=== PATIENT | male | born 1930 | race Caucasian/White ===

== ENCOUNTER → 2019-02-17 | Outpatient (CLI) | payer MEDICARE ==
--- NOTE | 2019-02-17 22:37 | BD ---
EXAMINATION TYPE: Axial Bone Density DATE OF EXAM: 02/17/2019 COMPARISON: NONE CLINICAL HISTORY: Height: 5 FT 7 1/2 IN Weight: 157 FRAX RISK QUESTIONS: Secondary Osteoporosis: RISK FACTORS HISTORY OF: Surgery to Spine/Hip(right/left)/Wrist (right/left): TSPINE T 12 CEMENTED When: 6- 8 YEARS AGO Active: YES Lost more than 2 inches in height since high school: YES MEDICATIONS: Additional Medications: CELEBREX, OMEPRAZOLE, PROSTATE MEDS, Additional History: EXAM MEASUREMENTS: Bone mineral densitometry was performed using the Planbox System. Bone mineral density as measured about the Lumbar spine is: ----- L1-L4(G/cm2): 1.398 T Score Values are as follows: ----- L2: 2.1 ----- L3: 2.2 ----- L4: 1.8 ----- L1-L4: 1.8 BASELINE Bone mineral density about the R hip (g/cm2): 0.725 Bone mineral density about the L hip (g/cm2): 0.711 T Score values are as follows: -----R Neck: -2.3 -----L Neck: -2.4 -----R Total: -2.4 -----L Total: -2.5 BASELINE IMPRESSION: Osteopenia (T Score between -2.5 and -1) identified in both hips. There is slightly increased risk of fracture and the patient may be considered for treatment. Re-Screen 2-5 years. NOTE: T-SCORE=SD OF THE YOUNG ADULT MEAN.
--- NOTE | 2019-02-18 08:51 | XR ---
EXAMINATION TYPE: XR lumbar spine 2 or 3V DATE OF EXAM: 02/17/2019 COMPARISON: None HISTORY: [age] low back pain for years TECHNIQUE: Three-view lumbar spine FINDINGS: There is a compression deformity with vertebroplasty at T12. There 5 lumbar-type vertebral bodies. The pedicles are intact. There is diffuse loss of disc height throughout the lumbar spine. Sp ondylosis is present. There is a scoliosis present with the convexity to the left centered at L3. Tavon e anterolisthesis of L4 on L5 is present. Some retrolisthesis of L2 on L3 is present. IMPRESSION: 1. Advanced degenerative disc changes with some anterolisthesis of L4 on L5 and retrolisthesis of L2 posteriorly at L3. Scoliosis is present
--- NOTE | 2019-02-18 08:53 | XR ---
EXAMINATION TYPE: XR thoracic spine complete DATE OF EXAM: 02/17/2019 COMPARISON: None HISTORY: [age] low back pain for years TECHNIQUE: Three-view thoracic spine FINDINGS: Mild scoliosis is present. There is a compression deformity with vertebroplasty at T12. The re are 12 thoracic type vertebral bodies. The pedicles are intact T1-T11. Some mild degenerative disc changes within the lower thoracic spine. IMPRESSION: 1. Old compression deformity T12. 2. Degenerative disc changes lower thoracic spine
== END | disposition home or self-care (01) ==
LOC: RADBDWWP 16:33
PROVIDERS: ATTEND Internal Medicine
DX: M51.36 Other intervertebral disc degeneration, lumbar region (principal); M43.16 Spondylolisthesis, lumbar region; M41.86 Other forms of scoliosis, lumbar region; M51.34 Other intervertebral disc degeneration, thoracic region; M43.8X4 Other specified deforming dorsopathies, thoracic region; M85.851 Other specified disorders of bone density and structure, right thigh; M85.852 Other specified disorders of bone density and structure, left thigh
CPT/HCPCS: 72072; 72100; 77080

== ENCOUNTER → 2019-05-01 | Outpatient (CLI) | payer MEDICARE | END | disposition home or self-care (01) | LOC: LABPAT 12:29 | PROVIDERS: ATTEND Orthopaedic Surgery | DX: Z01.812 Encounter for preprocedural laboratory examination (principal) | CPT/HCPCS: 87070 ==

== ENCOUNTER 2019-05-19 09:33 | Day surgery (SDC) | payer MEDICARE ==
[2019-05-15 15:21] VITALS: BMI 24.3
[~2019-05-19 09:33] MED LIST: ACETAMINOPHEN TAB 500 MG TAB PO ONE; GABAPENTIN 300 MG CAP PO ONE; HYDROmorphone 0.5 MG/0.5 ML SYRINGE IVP PRN; LIDOCAINE 1% 20 ML VIAL (10MG/ML) FOR IV START INTRADERMA PRN; MELOXICAM 7.5 MG TAB PO ONE; ONDANSETRON 4 MG/2 ML VIAL IVP ONE; TRANEXAMIC ACID 1,000 MG in SODIUM CHLORIDE 0.9% 100 ML IVPB ONE; VANCOMYCIN 1,000 MG in SODIUM CHLORIDE 0.9% 250 ML IVPB ONE
[2019-05-19] MEDS ORDERED: DEXAMETHASONE SOD PHOSPHATE 10 MG/ML 1 ML VIAL IV ONE (10:18)
[2019-05-19] MEDS: LACTATED RINGERS 1,000 ML IV SCH (10:24)
[2019-05-19] MEDS ORDERED: MIDAZOLAM 2 MG/2 ML VIAL IVP ONE (10:34)
[2019-05-19] MEDS ORDERED: fentaNYL (PF) 50 MCG/ML 2 ML AMP IVP ONE (10:35)
[2019-05-19] MEDS ORDERED: ROPIVACAINE 0.2%-NS ON-Q PUMP 1,090 MG, EMPTY PAIN BALL 1 EACH MISCELLANE PRN (11:04)
--- NOTE | 2019-05-19 11:06 | P.ANPRN ---
Procedure Note - Anesthesia - Nerve Block Performed Right Adductor Canal Infusion Time Out Performed: Yes Date of Procedure: 05/19/19 Procedure Start Time: 10:34 Procedure Stop Time: 10:45 Location of Patient: PreOp Indication: Acute Post-Operative Pain, Requested by Surgeon Specifically requested for management of pain by : Hudson Cabrera Sedation Type: Sedate with meaningful contact maintained Preparation: Sterile Prep Position: Supine Catheter Depth at Skin (cm): 6 Catheter: Indwelling Needle Types: Pajunk Needle Gauge: 18 Ultrasound used to visualize needle placement: Yes Ultrasound used to observe medication spread: Yes Injectate: 0.5% Ropivacaine (see comment for volume) (20 cc) Blood Aspirated: No Pain Paresthesia on Injection Noted: No Resistance on Injection: Normal Image Stored and Saved: Yes Events: Uneventful and Well Tolerated
[2019-05-19] MEDS ORDERED: HYDROmorphone (PF) 1 MG/ML ONE (11:41)
[2019-05-19] MEDS ORDERED: VECURONIUM 10 MG VIAL IV ONE (11:41)
[2019-05-19] MEDS ORDERED: MIDAZOLAM 2 MG/2 ML VIAL ONE (11:41)
[2019-05-19] MEDS ORDERED: TRANEXAMIC ACID 1,000 MG/10 ML VIAL ONE (11:41)
[2019-05-19] MEDS ORDERED: SODIUM CHLORIDE 0.9% 100 ML BAG ONE (11:41)
[2019-05-19] MEDS ORDERED: NEOSTIGMINE 1 MG/ML 10 ML VIAL ONE (11:41)
[2019-05-19] MEDS ORDERED: SUCCINYLCHOLINE CHLORIDE 100 MG/5 ML SYR IV ONE (11:41)
[2019-05-19] MEDS ORDERED: PROPOFOL 10 MG/ML 20 ML VIAL IV ONE (11:41)
[2019-05-19] MEDS ORDERED: fentaNYL (PF) 50 MCG/ML 2 ML AMP ONE (11:41)
[2019-05-19] MEDS ORDERED: LIDOCAINE 1% INJ 10MG/ML (20 ML MDV) ONE (11:41)
[2019-05-19] MEDS ORDERED: GLYCOPYRROLATE 0.2 MG/ML 2 ML VIAL ONE (11:41)
[2019-05-19] MEDS: ROPIVACAINE 246.25 MG, EPINEPHrine 0.5 MG, KETOROLAC 30 MG, cloNIDine HCL/PF 80 MCG, WA... MISCELLANE ONE ×10 (12:19→13:15)
[2019-05-19] MEDS ORDERED: LACTATED RINGERS 1,000 ML IV ONE (13:16)
--- NOTE | 2019-05-19 13:33 | P.OP ---
Date of Procedure: 05/19/19 Preoperative Diagnosis: Severe osteoarthritis right knee Postoperative Diagnosis: Severe osteoarthritis right knee Procedure(s) Performed: Right total knee arthroplasty with Visionaire patient specific guides Implants: Colon and Nephew Cruciate Retaining Journey II CR Oxinium Femoral Component size 6, right Colon & Nephew Journey Nonporous Tibial Baseplate size 7, right Colon & Nephew Journey II CR, XLPE Articular Insert, 10 mm, size 7-8 Colon & Nephew Brissa II Resurfacing Patellar Component, Oval, 32 mm All components were cemented using Palacose R bone cement. The articulation is Oxinium on polyethylene. Visionaire patient specific guides The articulation is Oxinium on polyethylene. Anesthesia: SHANEL Surgeon: Hudson Cabrera Needle Bar Molder #1: Ruth Davis Estimated Blood Loss (ml): 30 Pathology: other (Bone and cartilage) Condition: stable Disposition: PACU Indications for Procedure: After failure of conservative treatment we discussed the surgical and nonsurgical treatment options at length. Patient wishes to proceed with a total knee arthroplasty. Complications specific to this procedure were discussed at length, including but not limited to infection, bleeding, stiffness, and nerve injury. Patient is aware of all these complications and informed consent was obtained Operative Findings: The operative findings are consistent with severe osteoarthritis of the right knee Description of Procedure: Patient was seen in the preoperative area consent was reviewed and operative site was marked with a skin marker. An adductor canal pain catheter was placed by anesthesia in the preoperative area. Patient was then brought to the operating room and given preoperative antibiotics intravenously. A spinal anesthetic was attempted by the anesthesia department, but was unsuccessful. A general anesthetic was administered. A tourniquet was placed on the upper thigh and the lower extremity was prepped and draped in usual sterile fashion. A gram of transexamic acid was given. A universal timeout was then performed which confirmed the patient's name, surgical site, ALLERGIES, and consent. The lower extremity was then exsanguinated and tourniquet was inflated to 250 mmHg. A standard and anterior midline approach to the knee was performed. The skin and subcutaneous tissue was dissected down to the patellar tendon. A medial parapatellar arthrotomy was then performed. The knee was then extended, the patellar was everted, and the knee was again flexed. Anterior horns of both menisci were excised, and a release was performed to the posterior medial aspect of the knee. On gross visual inspection, there was complete loss of articular cartilage in the medial and patellofemoral joint spaces. There was also significant cartilage damage in the lateral compartment. There were multiple periarticular osteophytes. The patient specific guide was placed on the distal femur, and pinned in place. Using the patient specific guide, the distal femoral cut was performed. The cutting block was then removed and the cut was checked for flatness. The appropriate 5-in-1 cutting block was then pinned in place through the holes that were drilled through the patient specific guide. The anterior condyles were cut without notching. The posterior and chamfer cuts were performed while protecting the collateral ligaments. The cutting block was then removed. Attention was then directed to the tibia. The remaining ACL was removed with a Ronguer, and the tibia was then gently subluxed forward with a large bent knee retractor. Any remaining menisci was excised. The posterior lateral corner was cauterized in order to cauterize the lateral geniculate artery. The patient specific guide for the tibia was then placed and was held in place with pins. Pinholes were then placed for rotation of the tibial component as well. Proximal tibia was then cut and sized. Next trials were then placed with the appropriate-sized insert. The knee was able to fully extend and flex to 130 and was stable throughout all range of motion. The knee was then extended, patella everted. Patella was then measured, and then using an osteotomy guide, the patella was cut at the appropriate level. The patella was then measured and drilled and the patella trial was then placed. The knee was then taken through range of motion with the patella trial and the patella tracked normally. The knee was then extended patella trial was then removed and the patella was everted. Knee was then flexed and lug holes were drilled through the femoral trial and the femoral trial was then removed. The tibial was then exposed, and the tibial broach guide was then pinned in place after it was set for the appropriate rotation to allow for the most coverage without overhang. The tibia was then reamed and broached. The cut surfaces of bone were then irrigated with pulsatile lavage. The posterior structures were injected with the ropivacaine solution. The knee was also irrigated with Irrisept solution. The components were then opened, the cement was mixed, and the components were then cemented in place. The cement was allowed to harden with the knee in full extension. While the cement was hardening, the remaining soft tissues were then injected with a ropivacaine solution, which consisted of 246.25 mg of ropivacaine, 0.5 mg of epinephrine, 30 mg of Toradol, 80 g of clonidine, and 48.45 mL of sterile water, for a total of 100 mL of fluid injected. After the cemented hardened. The tourniquet was released, and hemostasis was obtained. A second gram of transexamic acid was given. The knee was again irrigated. The knee was again taken through range of motion and found to be stable throughout all range of motion of 0-130, and the patella tracked normally. The fascia was then closed with #2 strata fix suture. The subcutaneous tissue was closed with 3-0 Vicryl and 3-0 strata fix. Dermabond glue was used for the skin and placed with the knee in flexion. The patient was placed in a sterile silver dressing. Patient was then transferred to recovery room in stable condition. The junior assistant manager Ruth Davis NP was required due the complexity surgery and the need for a skilled promotions assistant sales marketing. She assisted in positioning, draping, retraction, and closure of the wound.
[2019-05-19] MEDS ORDERED: NA PHOS,M-B/NA PHOS,DI-BA 133 ML ENEMA RECTAL PRN (13:52)
[2019-05-19] MEDS ORDERED: BISACODYL 10 MG SUPP RECTAL PRN (13:52)
[2019-05-19] MEDS ORDERED: NALOXONE 0.4 MG/ML 1 ML VIAL IV PRN (13:52)
[2019-05-19] MEDS ORDERED: HYDROmorphone 0.5 MG/0.5 ML SYRINGE IVP PRN ×3 (13:52)
[2019-05-19] MEDS ORDERED: MAGNESIUM HYDROXIDE 2,400 MG/10 ML CUP PO PRN (13:52)
[2019-05-19] MEDS ORDERED: TEMAZEPAM 15 MG CAP PO PRN (13:52)
[2019-05-19] MEDS ORDERED: hydrOXYzine PAMOATE 25 MG CAP PO PRN (13:52)
[2019-05-19] MEDS ORDERED: ONDANSETRON 4 MG/2 ML VIAL IVP PRN (13:52)
[2019-05-19] MEDS ORDERED: HYDROcodone/APAP 7.5-325MG 1 EACH TAB PO PRN ×2 (13:55)
[2019-05-19] MEDS ORDERED: SODIUM CHLORIDE 0.9% 1,000 ML IV SCH (14:00)
--- NOTE | 2019-05-19 14:24 | XR ---
EXAMINATION TYPE: XR knee limited RT DATE OF EXAM: 05/19/2019 COMPARISON: NONE HISTORY: 88-year-old male status post total knee articular plasty, assess surgical alignment TECHNIQUE: 2 views FINDINGS: Images show placement of right total knee arthroplasty. Both distal femoral and proximal tibial compo nents of the prosthesis appear well seated without periprosthetic fracture. Alignment grossly anatomi c. Anterior soft tissue swelling with soft tissue air as well as intra-articular air related to recen t operation. Posterior loose body measures 1.6 cm. IMPRESSION: Uncomplicated postoperative appearance right total knee arthroplasty. A residual 1.6 cm posterior loo se body noted.
--- NOTE | 2019-05-19 15:12 | P.CONS ---
History of Present Illness - Reason for Consult Consult date: 05/19/19 Medical management Requesting physician: Hudson Cabrera - Chief Complaint Right total knee arthroplasty - History of Present Illness This is a 88-year-old male with a known history of osteoarthritis of the right knee, GERD and enlarged prostate. Patient underwent a right total knee arthroplasty with Dr. Cabrera today for severe osteoarthritis of the right knee. He tolerated surgery well with no complications. Estimated blood loss was 30 mL. We have been consulted for medical management. At this time patient is lying in bed comfortably. He reports that his pain is controlled. Vitals are stable. He denies any chest pain or shortness of breath. He denies any nausea or vomiting. Bowel movements moving vigorously prior to admission. And he denies any difficulty or burning with urination. Patient denies any cardiac history. Review of Systems Please refer to HPI otherwise unremarkable Past Medical History Past Medical History: GERD/Reflux, Hearing Disorder / Deafness, Osteoarthritis (OA), Prostate Disorder Additional Past Medical History / Comment(s): Hearing aids. BPH. Chronic back pain, spine "collapsed," wears support occ. History of Any Multi-Drug Resistant Organisms: None Reported Past Surgical History: Back Surgery, Orthopedic Surgery Additional Past Surgical History / Comment(s): Rt KNEE ARTHROSCOPY, Deviated Septum SX, Kyphoplasty T12, CATARACTS Past Anesthesia/Blood Transfusion Reactions: No Reported Reaction Smoking Status: Never smoker - Past Family History Mother Family Medical History: No Reported History Father Family Medical History: Myocardial Infarction (DC) Additional Family Medical History / Comment(s): AT AGE 49 Medications and Allergies Home Medications Medication Instructions Recorded Confirmed Type Celecoxib [CeleBREX] 200 mg PO DAILY 10/07/14 05/15/19 History Omeprazole [PriLOSEC] 20 mg PO DAILY 10/07/14 05/15/19 History Terazosin [Hytrin] 5 mg PO HS 10/07/14 05/15/19 History Multivitamins, Thera [Theragran] 1 each PO DAILY 12/06/14 05/15/19 History Cholecalciferol [Vitamin D3 (25 5,000 unit PO DAILY 05/15/19 05/15/19 History Mcg = 1000 Iu)] HYDROcodone/APAP 7.5-325MG [[place] 1 tab PO DIRECTED PRN 05/15/19 05/15/19 History 7.5-325] Aspirin 325 mg PO BID #60 tab 05/19/19 Rx Sennosides-Docusate Sodium 2 tab PO DAILY #30 tablet 05/19/19 Rx [Senokot-S] Allergies Allergy/AdvReac Type Severity Reaction Status Date / Time No Known Allergies Allergy Verified 05/15/19 14:43 Physical Exam Vitals: Vital Signs Temp Pulse Resp BP Pulse Ox 05/19/19 14:30 57 L 14 117/65 98 05/19/19 14:15 55 L 16 118/63 93 L 05/19/19 14:00 55 L 14 132/63 05/19/19 13:46 97.8 F 66 14 113/62 98 05/19/19 10:48 64 16 135/68 99 05/19/19 10:02 97.2 F L 77 17 149/86 97 Intake and Output 05/19/19 05/19/19 05/19/19 06:59 14:59 22:59 Intake Total 1550 Output Total 30 Balance 1520 Intake: IV 1550 Output: Estimated Blood Loss 30 Head normocephalic Neck supple Lungs clear to auscultation bilaterally no wheezing or crackles Heart regular rate and rhythm S1-S2, no rub or gallop Abdomen is soft nontender nondistended positive bowel sounds no hepatosplenomegaly Extremities no edema. Right leg is Damian wrapped. Pain pump is present Neuro alert and orientated to 3 Assessment and Plan Assessment: 1. Severe osteoarthritis of the right knee: Status post right total knee arthroplasty with Dr. Cabrera. Continue aspirin 325 mg twice a day and SCDs for DVT prophylaxis. Pain management per orthopedics. 2. History of GERD: Resume patient's omeprazole 20 mg daily 3. History of BPH: Resume patient's Hytrin Medications have been reviewed and reconciled Check CBC and CMP in a.m. Thank you for this consultation. We will continue to follow along during patient's hospitalization. Time with Patient: Greater than 30 (Greater than 50% of the total time spent in counseling and coordination of care.I performed an examination of the patient and discussed their management with the physician Tile Power Shear Operator. I have reviewed the Physician Tile Power Shear Operator's notes and agree with the documented findings and plan of care)
[2019-05-19] MEDS ORDERED: SENNOSIDES-DOCUSATE SODIUM 1 EACH TAB PO SCH (21:00)
[2019-05-19] MEDS ORDERED: DOXAZOSIN 4 MG TAB PO SCH (21:00)
[2019-05-19] MEDS: ASPIRIN 325 MG TAB PO SCH (21:40)
[2019-05-19] MEDS ORDERED: VANCOMYCIN 1,000 MG in SODIUM CHLORIDE 0.9% 250 ML IVPB ONE (23:00)
[2019-05-20 07:21] VITALS: BP 108/63; PULSE 74; RESP 18; TEMP 97.8
[2019-05-20] MEDS ORDERED: PANTOPRAZOLE 40 MG TABLET PO SCH (07:30)
[2019-05-20 08:15] LABS: Basophils % (A) 0 %; Eosinophils % (A) 0 %; HCT 40.8 % (39.0-53.0); HGB 13.3 gm/dL (13.0-17.5); Lymphocytes % (A) 8 %; MCH 34.8 pg (25.0-35.0); MCHC 32.6 g/dL (31.0-37.0); MCV 106.8 fL (80.0-100.0); Macrocytosis Slight; Monocytes % (A) 8 %; Neutrophils % (A) 84 %; Platelet Count 196 k/uL (150-450); RBC 3.82 m/uL (4.30-5.90); RDW 11.9 % (11.5-15.5); WBC 13.2 k/uL (3.8-10.6)
--- NOTE | 2019-05-20 08:24 | P.DS ---
Providers Expected date of discharge: 05/20/19 Attending physician: Hudson Cabrera Consults: 05/19/19 13:52 Consult Physician Routine Consulting Provider: Delia Mcneil Consult Reason/Comments: medical management Do you want consulting provider notified?: Yes Primary care physician: Delia Mcneil - Discharge Diagnosis(es) (1) Osteoarthritis of right knee Current Visit: Yes Status: Acute (2) Status post total right knee replacement Current Visit: Yes Status: Acute Hospital Course: This is a pleasant 88-year-old male last seen in our office with complaints of right knee pain. Patient has known history of degenerative arthritis of the right knee and presented to discuss options. After discussion and consideration, patient elected to proceed with a total knee arthroplasty of the right knee. The patient was seen preoperatively and medically cleared for surgery by his primary care physician. The patient was admitted to [facility] and underwent right total knee arthroplasty on 05/19/[address] Hudson Cabrera. The procedure was performed without complications or sequelae. The patient has done well postoperatively. The patient was seen and evaluated at bedside today and denies any new complaints. Pain is reasonably controlled. The patient states he is having a problem with urinary retention. Dressing is clean dry and intact. Incision looks fine with no erythema or active drainage. Calf is soft and nontender. The patient has full foot and ankle motion without difficulty. Patient's right lower extremity is neurovascular intact. Patient is orthopedically stable for discharge to home today when he is able to urinate without retaining. Pertinent Studies: Laboratory Tests 05/20/19 07:04 WBC 13.2 H RBC 3.82 L Hgb 13.3 Hct 40.8 MCV 106.8 H Neutrophils # 11.0 H Patient Condition at Discharge: Stable Plan - Discharge Summary Discharge Rx Participant: Yes New Discharge Prescriptions: New Aspirin 325 mg PO BID #60 tab Sennosides-Docusate Sodium [Senokot-S] 2 tab PO DAILY #30 tablet HYDROcodone/APAP 5-325MG [[place] 5] 1 - 2 each PO Q4-6H PRN #56 tab PRN Reason: Pain No Action Terazosin [Hytrin] 5 mg PO HS Omeprazole [PriLOSEC] 20 mg PO DAILY Celecoxib [CeleBREX] 200 mg PO DAILY Multivitamins, Thera [Theragran] 1 each PO DAILY Cholecalciferol [Vitamin D3 (25 Mcg = 1000 Iu)] 5,000 unit PO DAILY HYDROcodone/APAP 7.5-325MG [[place] 7.5-325] 1 tab PO DIRECTED PRN PRN Reason: Severe Pain Discharge Medication List Celecoxib [CeleBREX] 200 mg PO DAILY 10/07/14 [History] Omeprazole [PriLOSEC] 20 mg PO DAILY 10/07/14 [History] Terazosin [Hytrin] 5 mg PO HS 10/07/14 [History] Multivitamins, Thera [Theragran] 1 each PO DAILY 12/06/14 [History] Cholecalciferol [Vitamin D3 (25 Mcg = 1000 Iu)] 5,000 unit PO DAILY 05/15/19 [History] HYDROcodone/APAP 7.5-325MG [[place] 7.5-325] 1 tab PO DIRECTED PRN 05/15/19 [History] Aspirin 325 mg PO BID #60 tab 05/19/19 [Rx] Sennosides-Docusate Sodium [Senokot-S] 2 tab PO DAILY #30 tablet 05/19/19 [Rx] HYDROcodone/APAP 5-325MG [[place] 5] 1 - 2 each PO Q4-6H PRN #56 tab 05/20/19 [Rx] Follow up Appointment(s)/Referral(s): [facility], [NON-STAFF] - Hudson Cabrera DO [Doctor of Osteopathic Medicine] - 2 Weeks Ambulatory/Diagnostic Orders: Continuous Passive Motion (CPM) Machine [DME.AMB1] Time Frame: 3 Weeks, Location: None Selected Activity/Diet/Wound Care/Special Instructions: Weightbearing as tolerated with walker Keep dressing in place for 10 days unless saturated Aspirin 325 mg twice a day May shower over dressing CPM 5-6 hours daily Follow up with Dr. Hudson Cabrera in 2 weeks. Call [facility] with questions or concerns, Discharge Disposition: HOME WITH HOME HEALTH SERVICES
[2019-05-20 08:35] LABS: ALT 14 U/L (4-49); AST 26 U/L (17-59); African American GFR (CKD) >90 (>60 ml/min/1.73 sqM); Albumin 3.1 g/dL (3.5-5.0); Alkaline Phosphatase 54 U/L (38-126); Anion Gap 4 mmol/L; Blood Urea Nitrogen 18 mg/dL (9-20); Calcium 8.7 mg/dL (8.4-10.2); Carbon Dioxide 24 mmol/L (22-30); Chloride 109 mmol/L (98-107); Glucose 89 mg/dL (74-99); Non-African American GFR(CKD) 82 (>60 ml/min/1.73 sqM); Potassium 4.4 mmol/L (3.5-5.1); Sodium 137 mmol/L (137-145); Total Bilirubin 0.6 mg/dL (0.2-1.3); Total Protein 5.9 g/dL (6.3-8.2)
[2019-05-20] MEDS: LACTATED RINGERS 1,000 ML IV SCH (08:40)
[2019-05-20] MEDS: ASPIRIN 325 MG TAB PO SCH (08:42)
[2019-05-20] MEDS ORDERED: MULTIVITAMINS, THERA 1 EACH TAB PO SCH (09:00)
[2019-05-20] MEDS ORDERED: CHOLECALCIFEROL 1,000 UNIT TAB PO SCH (09:00)
[2019-05-20 12:34] LABS: Appearance,Urine Clear (Clear); Bilirubin,Urine Negative (Negative); Blood,Urine Negative (Negative); Color,Urine Yellow; Glucose,Urine (UA) Negative (Negative); Ketones,Urine Negative (Negative); Leukocyte Esterase,Urine Negative (Negative); Nitrite,Urine Negative (Negative); PH, Urine 5.5 (5.0-8.0); Protein,Urine Negative (Negative); Specific Gravity,Urine 1.014 (1.001-1.035); Urobilinogen,Urine <2.0 mg/dL (<2.0)
--- NOTE | 2019-05-20 13:34 | P.PN ---
Progress Note - Text 05/20 647am 88 yr old male s/p tkr by Dr Hudson johnson. pt has an on-q pump for post op pain control with the solution running at 8cc/hr and has a vas of 1. plan to continue infusion.
--- NOTE | 2019-05-20 13:52 | P.PN ---
Subjective Progress Note Date: 05/20/19 This is a 88-year-old male with a known history of osteoarthritis of the right knee, GERD and enlarged prostate. Patient underwent a right total knee arthroplasty with Dr. Cabrera today for severe osteoarthritis of the right knee. He tolerated surgery well with no complications. Estimated blood loss w as 30 mL. We have been consulted for medical management. At this time patient is lying in bed comfortably. He reports that his pain is controlled. Vitals are stable. He denies any chest pain or shortness of breath. He denies any nausea or vomiting. Bowel movements moving vigorously prior to admission. And he denies any difficulty or burning with urination. Patient denies any cardiac history. On 05/20/2019 patient is alert and oriented 3. Patient did initially have some trouble voiding. But was able to urinate. Urinary analysis negative for infection. Patient to be DC'd home per orthopedic services will be DC'd on aspirin for DVT prophylaxis. At this time patient denies chest pain or shortness of breath. Patient denies nausea vomiting or diarrhea. Patient denies any urinary burning or frequency. Patient has been up ambulating. Objective - Vital Signs Vital signs: Vital Signs Temp 97.8 F 05/20/19 07:00 Pulse 74 05/20/19 07:00 Resp 18 05/20/19 07:00 BP 108/63 05/20/19 07:00 Pulse Ox 97 05/20/19 07:00 Intake & Output 05/19/19 05/20/19 05/20/19 18:59 06:59 18:59 Intake Total 1550 400 Output Total 30 1300 125 Balance 1520 -900 -125 Weight 70.307 kg Intake: IV 1550 Intake, IV Titration 400 Amount Sodium Chloride 0.9% 1, 400 000 ml @ 50 mls/hr IV . Q20H [facility] Rx#:[id number] Output: Urine 1300 125 Straight 1300 Estimated Blood Loss 30 Other: Voiding Method Urinal - Exam Head normocephalic Neck supple Lungs clear to auscultation bilaterally no wheezing or crackles Heart regular rate and rhythm S1-S2, no rub or gallop Abdomen is soft nontender nondistended positive bowel sounds no hepatosplenomegaly Extremities no edema. Right knee dressing is clean dry and intact Neuro alert and orientated to 3 - Labs CBC & Chem 7: 05/20/19 07:04 05/20/19 07:04 Labs: Abnormal Lab Results - Last 24 Hours (Table) 05/20/19 05/20/19 Range/Units 07:04 07:04 WBC 13.2 H (3.8-10.6) k/uL RBC 3.82 L (4.30-5.90) m/uL MCV 106.8 H (80.0-100.0) fL Neutrophils # 11.0 H (1.3-7.7) k/uL Chloride 109 H (98-107) mmol/L Total Protein 5.9 L (6.3-8.2) g/dL Albumin 3.1 L (3.5-5.0) g/dL Assessment and Plan Assessment: 1. Severe osteoarthritis of the right knee: Status post right total knee arthroplasty with Dr. Cabrera. Continue aspirin 325 mg twice a day and SCDs for DVT prophylaxis. Pain management per orthopedics. Patient is currently postop day 1. Patient will be DC'd home per orthopedic services. Patient will be DC'd on aspirin 325mg 2. History of GERD: Resume patient's omeprazole 20 mg daily 3. History of BPH: Resume patient's Hytrin. Patient was able to void post procedure 4. Leukocytosis. wbc slightly elevated at 13.2. UA negative patient denies any acute symptoms Patient to be DC'd home per orthopedic services I performed an examination of the patient and discussed their management with the Nurse Practitioner. I have reviewed the Nurse Practitioner's notes and agree with the documented findings and plan of care
[2019-05-20] MEDS ORDERED: TAMSULOSIN 0.4 MG CAP.ER.24H PO SCH (18:30)
== END 2019-05-20 14:18 | disposition home health service (06) ==
LOC: OR 09:33 → 4SSUR 13:46 → OR 05-20 14:18
PROVIDERS: ATTEND Orthopaedic Surgery
DX: M17.11 Unilateral primary osteoarthritis, right knee (principal); K21.9 Gastro-esophageal reflux disease without esophagitis; N40.0 Benign prostatic hyperplasia without lower urinary tract symptoms; D72.829 Elevated white blood cell count, unspecified; H91.90 Unspecified hearing loss, unspecified ear; M54.9 Dorsalgia, unspecified; G89.29 Other chronic pain; Z79.899 Other long term (current) drug therapy; Z97.4 Presence of external hearing-aid; Z98.890 Other specified postprocedural states; Z98.49 Cataract extraction status, unspecified eye; Z97.3 Presence of spectacles and contact lenses; Z82.49 Family history of ischemic heart disease and other diseases of the circulatory system
CPT/HCPCS: 97161; 64448; 76942; 80053; 85025; 81003; 88300; 73560; 27447; C1713; C1776; J2250; J0171; J3370; J1100; J2710; J2405; J2001; J3010; J1885; J1170 ×2; J2795 ×2; J0330; J2704; J0735

== ENCOUNTER 2019-05-21 10:38 | Inpatient (IN) | payer MEDICARE ==
[2019-05-21] MEDS ORDERED: SODIUM CHLORIDE 0.9% 1,000 ML IV STA (10:43)
--- NOTE | 2019-05-21 10:54 | ED ---
Dizziness HPI - General Chief Complaint: Syncope Stated Complaint: Fall Time Seen by Provider: 05/21/19 10:38 Source: patient, EMS, RN notes reviewed Mode of arrival: EMS Limitations: no limitations - History of Present Illness Initial Comments: This is a 88-year-old male is had right knee replacement done 2 days ago who presents by EMS with complaints of syncope. He apparently was eating breakfast the table when he suddenly passed out EMS was called he was out for somewhere between 8-10 minutes he did have bradycardia he was unresponsive he did maintain a pulse and blood pressure. After oxygen was administered patient began to revive a period of time he arrived at the hospital he is awake alert oriented 4. No trauma reported no fevers chills nausea vomiting sweats he does have a pain pump on his right lower extremity. He denied any headache blurry vision palpitations chest pain or other symptoms no focal weakness. Paramedics did notice that his pupils were pinpoint upon their initial evaluation. MD Complaint: lightheadedness, other - Related Data Home Medications Medication Instructions Recorded Confirmed Omeprazole [PriLOSEC] 20 mg PO BID 10/07/14 05/21/19 Terazosin [Hytrin] 5 mg PO HS 10/07/14 05/21/19 Multivitamins, Thera [Multivitamin 1 each PO DAILY 12/06/14 05/21/19 (formulary)] Cholecalciferol [Vitamin D3 (25 5,000 unit PO DAILY 05/15/19 05/21/19 Mcg = 1000 Iu)] Celecoxib [CeleBREX] 200 mg PO BID 05/21/19 05/21/19 HYDROcodone/APAP 5-325MG [[place] 5] 1 - 2 tab PO Q4-6H PRN 05/21/19 05/21/19 Sennosides-Docusate Sodium 2 tab PO DAILY PRN 05/21/19 05/21/19 [Senokot-S] Previous Rx's Medication Instructions Recorded Aspirin 325 mg PO BID #60 tab 05/19/19 Allergies Allergy/AdvReac Type Severity Reaction Status Date / Time No Known Allergies Allergy Verified 05/21/19 11:23 Review of Systems ROS Statement: Those systems with pertinent positive or pertinent negative responses have been documented in the HPI. ROS Other: All systems not noted in ROS Statement are negative. Past Medical History Past Medical History: GERD/Reflux, Osteoarthritis (OA), Prostate Disorder, Syncope History of Any Multi-Drug Resistant Organisms: None Reported Past Surgical History: Orthopedic Surgery Additional Past Surgical History / Comment(s): KNEE ARTHROSCOPY, DEV. SEPTUM SX,RT CATARACT Past Anesthesia/Blood Transfusion Reactions: No Reported Reaction Past Psychological History: No Psychological Hx Reported Smoking Status: Never smoker Past Alcohol Use History: Occasional Past Drug Use History: None Reported - Past Family History Mother Family Medical History: No Reported History Father Family Medical History: Myocardial Infarction ([place]) Additional Family Medical History / Comment(s): AT AGE 49 General Exam - General Exam Comments Initial Comments: This is a well-developed well-nourished awake alert oriented 3 male Limitations: no limitations General appearance: alert, in no apparent distress Head exam: Present: atraumatic, normocephalic, normal inspection Eye exam: Present: normal appearance, PERRL, EOMI. Absent: scleral icterus, conjunctival injection, periorbital swelling ENT exam: Present: normal exam, mucous membranes moist Neck exam: Present: normal inspection, full ROM, other (No stridor JVD or brui ts). Absent: tenderness, meningismus, lymphadenopathy Respiratory exam: Present: normal lung sounds bilaterally. Absent: respiratory distress, wheezes, rales, rhonchi, stridor Cardiovascular Exam: Present: regular rate, normal rhythm, normal heart sounds. Absent: systolic murmur, diastolic murmur, rubs, gallop, clicks GI/Abdominal exam: Present: soft, normal bowel sounds. Absent: distended, tenderness, guarding, rebound, rigid Extremities exam: Present: full ROM, tenderness, normal capillary refill, other (A healing surgical scar seen over the anterior right knee localized edema and ecchymosis no increased localized temperature.). Absent: pedal edema, joint swelling, calf tenderness Back exam: Present: normal inspection Neurological exam: Present: alert, oriented X3, CN II-XII intact Psychiatric exam: Present: normal affect, normal mood Skin exam: Present: warm, dry, intact, normal color. Absent: rash Course Vital Signs 05/21/19 10:43 Temperature 98.6 F Pulse Rate 65 Respiratory 16 Rate Blood Pressure 109/69 O2 Sat by Pulse 98 Oximetry - Reevaluation(s) Reevaluation #1: 05/21/19 12:33 Reevaluation patient reveals he is awake alert oriented 3 no further episodes. EKG Findings - EKG Results: EKG: interpreted by ERMD, sinus rhythm (Sinus rhythm with premature supraventricular complexes noted rate was 66. Interval 176 QRS duration 154 QT since QTC 46/425 red bundle-branch block pattern no apparent acute ST T-wave abnormalities at this time) Medical Decision Making - Medical Decision Making I did discuss findings the patient as well as with Dr. Mcneil. Patient will be admitted and cardiology will be consulted for evaluation - Lab Data Result diagrams: 05/21/19 10:47 05/21/19 10:47 Lab Results 05/21/19 05/21/19 05/21/19 Range/Units 10:47 10:47 10:47 WBC 8.2 (3.8-10.6) k/uL RBC 3.70 L (4.30-5.90) m/uL Hgb 12.9 L (13.0-17.5) gm/dL Hct 39.6 (39.0-53.0) % MCV 107.2 H (80.0-100.0) fL MCH 35.0 (25.0-35.0) pg MCHC 32.6 (31.0-37.0) g/dL RDW 12.0 (11.5-15.5) % Plt Count 192 (150-450) k/uL Neutrophils % 62 % Lymphocytes % 20 % Monocytes % 12 % Eosinophils % 1 % Basophils % 0 % Neutrophils # 5.1 (1.3-7.7) k/uL Lymphocytes # 1.7 (1.0-4.8) k/uL Monocytes # 1.0 (0-1.0) k/uL Eosinophils # 0.1 (0-0.7) k/uL Basophils # 0.0 (0-0.2) k/uL Macrocytosis Moderate PT 10.6 (9.0-12.0) sec INR 1.0 (<1.2) APTT 23.0 (22.0-30.0) sec Sodium 138 (137-145) mmol/L Potassium 4.3 (3.5-5.1) mmol/L Chloride 106 (98-107) mmol/L Carbon Dioxide 26 (22-30) mmol/L Anion Gap 6 mmol/L BUN 25 H (9-20) mg/dL Creatinine 0.96 (0.66-1.25) mg/dL Est GFR (CKD-EPI)AfAm 82 (>60 ml/min/1.73 sqM) Est GFR (CKD-EPI)NonAf 71 (>60 ml/min/1.73 sqM) Glucose 99 (74-99) mg/dL POC Glucose (mg/dL) (75-99) mg/dL POC Glu Interlocking Machine Operator ID Calcium 8.5 (8.4-10.2) mg/dL Magnesium 1.8 (1.6-2.3) mg/dL Total Bilirubin 1.2 (0.2-1.3) mg/dL AST 43 (17-59) U/L ALT 17 (4-49) U/L Alkaline Phosphatase 56 (38-126) U/L Creatine Kinase 579 H (55-170) U/L Troponin I (0.000-0.034) ng/mL Total Protein 5.8 L (6.3-8.2) g/dL Albumin 3.1 L (3.5-5.0) g/dL 05/21/19 05/21/19 Range/Units 10:47 10:55 WBC (3.8-10.6) k/uL RBC (4.30-5.90) m/uL Hgb (13.0-17.5) gm/dL Hct (39.0-53.0) % MCV (80.0-100.0) fL MCH (25.0-35.0) pg MCHC (31.0-37.0) g/dL RDW (11.5-15.5) % Plt Count (150-450) k/uL Neutrophils % % Lymphocytes % % Monocytes % % Eosinophils % % Basophils % % Neutrophils # (1.3-7.7) k/uL Lymphocytes # (1.0-4.8) k/uL Monocytes # (0-1.0) k/uL Eosinophils # (0-0.7) k/uL Basophils # (0-0.2) k/uL Macrocytosis PT (9.0-12.0) sec INR (<1.2) APTT (22.0-30.0) sec Sodium (137-145) mmol/L Potassium (3.5-5.1) mmol/L Chloride (98-107) mmol/L Carbon Dioxide (22-30) mmol/L Anion Gap mmol/L BUN (9-20) mg/dL Creatinine (0.66-1.25) mg/dL Est GFR (CKD-EPI)AfAm (>60 ml/min/1.73 sqM) Est GFR (CKD-EPI)NonAf (>60 ml/min/1.73 sqM) Glucose (74-99) mg/dL POC Glucose (mg/dL) 95 (75-99) mg/dL POC Glu Interlocking Machine Operator ID Rosalind Irizarry Calcium (8.4-10.2) mg/dL Magnesium (1.6-2.3) mg/dL Total Bilirubin (0.2-1.3) mg/dL AST (17-59) U/L ALT (4-49) U/L Alkaline Phosphatase (38-126) U/L Creatine Kinase (55-170) U/L Troponin I <0.012 (0.000-0.034) ng/mL Total Protein (6.3-8.2) g/dL Albumin (3.5-5.0) g/dL - Radiology Data Radiology results: report reviewed (I did review the imaging and reports no evidence of acute findings.), image reviewed Critical Care Time Critical Care Time: Yes Critical Care Time: 31 minutes of critical care time which includes initial presentation with history physical labs x-rays several reevaluation the patient discussed with the patient regarding findings discussed with the main physician admission orders and documentation of the above Disposition Clinical Impression: Syncope and collapse Disposition: ADMITTED IP TO THIS [facility] Condition: Fair Referrals: Delia Mcneil MD [Primary Care Provider] - 1-2 days
[2019-05-21 11:04] LABS: Glucose,Whole Blood 95 mg/dL (75-99)
[2019-05-21 11:16] LABS: Basophils % (A) 0 %; Eosinophils # (A) 0.1 k/uL (0-0.7); Eosinophils % (A) 1 %; HCT 39.6 % (39.0-53.0); HGB 12.9 gm/dL (13.0-17.5); Lymphocytes # (A) 1.7 k/uL (1.0-4.8); Lymphocytes % (A) 20 %; MCHC 32.6 g/dL (31.0-37.0); MCV 107.2 fL (80.0-100.0); Macrocytosis Moderate; Mean Platelet Volume 8.4; Monocytes % (A) 12 %; Neutrophils # (A) 5.1 k/uL (1.3-7.7); Neutrophils % (A) 62 %; Platelet Count 192 k/uL (150-450); WBC 8.2 k/uL (3.8-10.6)
--- NOTE | 2019-05-21 11:21 | XR ---
EXAMINATION TYPE: XR chest 2V DATE OF EXAM: 05/21/2019 COMPARISON: NONE HISTORY: Syncope and weakness. TECHNIQUE: Frontal and lateral views of the chest are obtained. FINDINGS: There is cardiomegaly with small right pleural effusion. Some reticular interstitial ga es favor chronic right normal fibrosis with moderate biapical pleural/parenchymal scarring. The osse ous structures are demineralized. Vertebroplasty advanced compression type fracture deformity roughly T12 level noted. IMPRESSION: Chronic changes and cardiomegaly with small right pleural effusion.
[2019-05-21 11:25] LABS: Albumin 3.1 g/dL (3.5-5.0); Calcium 8.5 mg/dL (8.4-10.2); Magnesium 1.8 mg/dL (1.6-2.3); Potassium 4.3 mmol/L (3.5-5.1); Total Bilirubin 1.2 mg/dL (0.2-1.3); Total Protein 5.8 g/dL (6.3-8.2)
[2019-05-21 11:33] LABS: Prothrombin Time 10.6 sec (9.0-12.0)
--- NOTE | 2019-05-21 11:39 | CT ---
EXAMINATION TYPE: CT brain wo con DATE OF EXAM: 05/21/2019 HISTORY: Fall, Altered mental status CT DLP: 1153.4 mGycm. Automated Exposure Control for Dose Reduction was Utilized. TECHNIQUE: CT scan of the head is performed without contrast. COMPARISON: None. FINDINGS: There is no acute intracranial hemorrhage or midline shift identified. There is diffuse v entricular and sulcal prominence consistent with diffuse age-related cerebral atrophy. There is low- attenuation in the periventricular white matter consistent with chronic small vessel ischemic change. Moderate mucosal thickening inferior aspect right maxillary sinus. Remainder paranasal sinuses are c lear. Vascular calcification distal internal carotid arteries bilaterally is present. IMPRESSION: No acute intracranial hemorrhage or midline shift. There is moderate diffuse age-relate d cerebral atrophy and chronic small vessel ischemic change noted.
[2019-05-21] MEDS ORDERED: NALOXONE 0.4 MG/ML 1 ML VIAL IV PRN (12:35)
[2019-05-21] MEDS: HYDROcodone/APAP 5-325MG 1 EACH TAB PO PRN ×2 (14:11→22:27)
[2019-05-21] MEDS: MELOXICAM 7.5 MG TAB PO SCH (14:11)
--- NOTE | 2019-05-21 15:18 | P.HPIM ---
History of Present Illness H&P Date: 05/21/19 Chief Complaint: syncope This is a 88-year-old male who had a right total knee arthroplasty pleated 2 days ago. He also has a history of GERD, BPH and osteoarthritis. Patient presents to the emergency room after a syncopal episode. Patient had been taking his [place] 5 mg 1-2 tablets every 4-6 hours. He got up this morning to eat breakfast. He was in the kitchen and went from the fridge to the table. He sat down at the table. And he passed out. He may passed out for about 8-10 minutes. The called EMS. ER report that there was some bradycardia. He was unresponsive but did maintain a pulse and blood pressure. Patient did have loss of bladder control when he passed out. When he came to the hospital he was alert and orientated 4. Patient denies hitting his head. He also has the pain pump that is given after surgery still present on his leg. Per paramedics pupils were pinpoint upon their evaluation. Patient has increased swelling and on that right knee. He is starting to have some redness and erythema noted above the knee and just below the knee. He denies any fevers chills or sweats. Denies any chest pain or shortness of breath. Denies any nausea or vomiting. Didn't is no bowel movement yet. He is passing gas. Troponin is negative. Computed tomography scan of the brain showed no acute changes. Chest x-ray chronic changes, cardiomegaly and a small right pleural effusion. EKG was sinus rhythm with PVCs heart rate is 66 and a right bundle branch block. Venous Doppler has been ordered for the right leg to rule out DVT. Patient was started on Ancef for possible cellulitis of that right leg. Cardiology has been consulted in regards to the syncopal episode. And also consult placed for orthopedics. Patient has never had a syncopal episode in the past. Review of Systems Please refer to HPI otherwise unremarkable Past Medical History Past Medical History: GERD/Reflux, Hearing Disorder / Deafness, Osteoarthritis (OA), Pneumonia, Prostate Disorder, Syncope Additional Past Medical History / Comment(s): BPH, urinary retention, arthritis in multiple joints, chronic back pain-"collapsed vertebrae", [place] bilaterally- aides are in for repair. History of Any Multi-Drug Resistant Organisms: None Reported Past Surgical History: Joint Replacement, Orthopedic Surgery Additional Past Surgical History / Comment(s): R knee arthroscopy, 05/19/19 total R knee arthroplasty, kyphoplasty, deviated septum surgery, colonoscopies, bilateral cataract removals/lens implants. Past Anesthesia/Blood Transfusion Reactions: No Reported Reaction Past Psychological History: No Psychological Hx Reported Additional Psychological History / Comment(s): Pt resides with his spouse. He is currently using a walker to ambulate post total R knee. He cannot drive at this time, spouse can drive. He is to start home PT-thinks thru [facility]. He has a toilet raiser, shower chair. Smoking Status: Never smoker Past Alcohol Use History: Occasional Past Drug Use History: None Reported - Past Family History Mother Family Medical History: CVA/TIA Father Family Medical History: Myocardial Infarction ([place]) Additional Family Medical History / Comment(s): AT AGE 49 Medications and Allergies Home Medications Medication Instructions Recorded Confirmed Type Omeprazole [PriLOSEC] 20 mg PO BID 10/07/14 05/21/19 History Terazosin [Hytrin] 5 mg PO HS 10/07/14 05/21/19 History Multivitamins, Thera [Multivitamin 1 each PO DAILY 12/06/14 05/21/19 History (formulary)] Cholecalciferol [Vitamin D3 (25 5,000 unit PO DAILY 05/15/19 05/21/19 History Mcg = 1000 Iu)] Aspirin 325 mg PO BID #60 tab 05/19/19 05/21/19 Rx Celecoxib [CeleBREX] 200 mg PO BID 05/21/19 05/21/19 History HYDROcodone/APAP 5-325MG [[place] 5] 1 - 2 tab PO Q4-6H PRN 05/21/19 05/21/19 History Sennosides-Docusate Sodium 2 tab PO DAILY PRN 05/21/19 05/21/19 History [Senokot-S] Allergies Allergy/AdvReac Type Severity Reaction Status Date / Time No Known Allergies Allergy Verified 05/21/19 11:23 Physical Exam Vitals: Vital Signs Temp Pulse Resp BP Pulse Ox 05/21/19 13:13 98.5 F 76 20 136/73 97 05/21/19 10:43 98.6 F 65 16 109/69 98 Intake and Output 05/21/19 05/21/19 05/21/19 06:59 14:59 22:59 Other: Weight 70.307 kg Head normocephalic Neck supple Lungs clear to auscultation bilaterally no wheezing or crackles Heart regular rate and rhythm S1-S2, no rub or gallop Abdomen is soft nontender nondistended positive bowel sounds no hepatosplenomegaly Extremities the right knee is swollen significant bruising noted. There is some mild erythema noted above the knee and just below the knee. It is warm to touch. Dressing is clean dry and intact Neuro alert and orientated to 3 Results CBC & Chem 7: 05/21/19 10:47 05/21/19 10:47 Labs: Abnormal Lab Results - Last 24 Hours (Table) 05/21/19 05/21/19 Range/Units 10:47 10:47 RBC 3.70 L (4.30-5.90) m/uL Hgb 12.9 L (13.0-17.5) gm/dL MCV 107.2 H (80.0-100.0) fL BUN 25 H (9-20) mg/dL Creatine Kinase 579 H (55-170) U/L Total Protein 5.8 L (6.3-8.2) g/dL Albumin 3.1 L (3.5-5.0) g/dL Thrombosis Risk Factor Assmnt - Choose All That Apply Any of the Below Risk Factors Present?: Yes Other Risk Factors: Yes Each Risk Factor Represents 3 Points: Age 75 years or older Other congenital or acquired thrombophilia - If yes, enter type in comment: No Each Risk Factor Represents 5 Points: Elective major lower extremity arthoplasty Thrombosis Risk Factor Assessment Total Risk Factor Score: 8 Thrombosis Risk Factor Assessment Level: High Risk Assessment and Plan Assessment: 1. Syncopal episode: EKG sinus rhythm with PVCs and right bundle branch block heart rate of 66. Continue with telemetry monitoring. Troponin negative. Computed tomography scan of the brain showing no acute changes. Cardiology on consult. Check urinalysis 2. Right total knee arthroplasty: Surgery completed on 05/19/[address] Cabrera. 3. Possible cellulitis of the right leg. Start Ancef 1 g every 8 hours. Also check a venous Doppler to rule out DVT. Check blood culture 4. History of BPH continue the Cardura 5. GERD continue Protonix GI prophylaxis Protonix and DVT prophylaxis subcu heparin Time with Patient: Greater than 30 (Greater than 50% of the total time spent in counseling and coordination of care.I performed an examination of the patient and discussed their management with the physician Collector. I have reviewed the Physician Collector's notes and agree with the documented findings and plan of care)
--- NOTE | 2019-05-21 15:47 | US ---
EXAMINATION TYPE: US venous doppler duplex LE RT DATE OF EXAM: 05/21/2019 3:38 PM COMPARISON: NONE CLINICAL HISTORY: leg swelling. Knee replacement on Saturday, 2 days ago. Swelling. Patient is on as pirin. SIDE PERFORMED: Right TECHNIQUE: The lower extremity deep venous system is examined utilizing real time linear array sonog lisa with graded compression, doppler sonography and color-flow sonography. VESSELS IMAGED: External Iliac Vein (EIV) Common Femoral Vein Deep Femoral Vein Greater Saphenous Vein * Femoral Vein Popliteal Vein Small Saphenous Vein * Proximal Calf Veins (* superficial vessels) Right Leg: Negative for DVT In posterior right knee, complex fluid collection visualized = 6.4 x 3.7 x 1.3 cm Grayscale, color doppler, spectral doppler imaging performed of the deep veins of the right lower ext remity. There is normal flow, compressibility, vascular waveforms. IMPRESSION: No ultrasound evidence for acute DVT in the right lower extremity. Moderate size poplite al cyst thought present at the end of the study.
--- NOTE | 2019-05-21 15:51 | P.CNOR ---
History of Present Illness - [facility] Consult date: 05/21/19 Consult reason: other (Recent right total knee arthroplasty) History of present illness: The patient is a 88-year-old male who is status post right total knee arthroplasty by Dr. Hudson Cabrera on 05/19/2019. The patient was discharged home yesterday and was doing well. However this morning the patient "passed out" at home and an ambulance was called. He was out at least 8-10 minutes and did have some bradycardia. The patient states that his pain was doing well until last night when he noticed increasing pain and swelling to the knee. He currently has the On-Q pump in place still. The patient states that he has been taking one [place] every 4 hours for the pain. He denies fever, chills, rigors, shortness breath, chest pain, and abdominal pain. Review of Systems Constitutional: Denies chills, Denies fever Cardiovascular: Denies chest pain, Denies shortness of breath Respiratory: Denies cough Gastrointestinal: Denies abdominal pain, Denies diarrhea, Denies nausea, Denies vomiting Musculoskeletal: right: knee pain, knee stiffness, knee swelling Past Medical History Past Medical History: GERD/Reflux, Hearing Disorder / Deafness, Osteoarthritis (OA), Pneumonia, Prostate Disorder, Syncope Additional Past Medical History / Comment(s): BPH, urinary retention, arthritis in multiple joints, chronic back pain-"collapsed vertebrae", [place] bilaterally- aides are in for repair. History of Any Multi-Drug Resistant Organisms: None Reported Past Surgical History: Joint Replacement, Orthopedic Surgery Additional Past Surgical History / Comment(s): R knee arthroscopy, 05/19/19 total R knee arthroplasty, kyphoplasty, deviated septum surgery, colonoscopies, bilateral cataract removals/lens implants. Past Anesthesia/Blood Transfusion Reactions: No Reported Reaction Past Psychological History: No Psychological Hx Reported Additional Psychological History / Comment(s): Pt resides with his spouse. He is currently using a walker to ambulate post total R knee. He cannot drive at this time, spouse can drive. He is to start home PT-thinks thru [facility]. He has a toilet raiser, shower chair. Smoking Status: Never smoker Past Alcohol Use History: Occasional Past Drug Use History: None Reported - Past Family History Mother Family Medical History: CVA/TIA Father Family Medical History: Myocardial Infarction ([place]) Additional Family Medical History / Comment(s): AT AGE 49 Medications and Allergies Home Medications Medication Instructions Recorded Confirmed Type Omeprazole [PriLOSEC] 20 mg PO BID 10/07/14 05/21/19 History Terazosin [Hytrin] 5 mg PO HS 10/07/14 05/21/19 History Multivitamins, Thera [Multivitamin 1 each PO DAILY 12/06/14 05/21/19 History (formulary)] Cholecalciferol [Vitamin D3 (25 5,000 unit PO DAILY 05/15/19 05/21/19 History Mcg = 1000 Iu)] Aspirin 325 mg PO BID #60 tab 05/19/19 05/21/19 Rx Celecoxib [CeleBREX] 200 mg PO BID 05/21/19 05/21/19 History HYDROcodone/APAP 5-325MG [[place] 5] 1 - 2 tab PO Q4-6H PRN 05/21/19 05/21/19 History Sennosides-Docusate Sodium 2 tab PO DAILY PRN 05/21/19 05/21/19 History [Senokot-S] Allergies Allergy/AdvReac Type Severity Reaction Status Date / Time No Known Allergies Allergy Verified 05/21/19 11:23 Physical Examination The patient does not appear in acute distress. Alert and orientated x3. Dressing is intact. The Optifoam dressing was removed. Incision appears fine with some active bloody drainage from the distal aspect of the incision. There is a dark red appearance the medial knee extending into the thigh and calf. No erythema is present. There is pain and tightness to ROM of the knee. Calf is soft and nontender. Good foot and ankle motion without difficulty. Sensation and circulatory status is intact. Results - Labs Labs: Abnormal Lab Results - Last 24 Hours (Table) 05/21/19 05/21/19 Range/Units 10:47 10:47 RBC 3.70 L (4.30-5.90) m/uL Hgb 12.9 L (13.0-17.5) gm/dL MCV 107.2 H (80.0-100.0) fL BUN 25 H (9-20) mg/dL Creatine Kinase 579 H (55-170) U/L Total Protein 5.8 L (6.3-8.2) g/dL Albumin 3.1 L (3.5-5.0) g/dL H & H 05/21/19 Range/Units 10:47 Hgb 12.9 L (13.0-17.5) gm/dL Hct 39.6 (39.0-53.0) % Coagulation 05/21/19 Range/Units 10:47 INR 1.0 (<1.2) Result Diagrams: 05/21/19 10:47 05/21/19 10:47 Assessment and Plan (1) Syncope and collapse Current Visit: Yes Status: Acute Code(s): R55 - SYNCOPE AND COLLAPSE SNOMED Code(s): 857546790 (2) Status post total right knee replacement Current Visit: No Status: Acute Code(s): Z96.651 - PRESENCE OF RIGHT ARTIFICIAL KNEE JOINT SNOMED Code(s): 3065937649480 Plan: The clinical findings were discussed with the patient. The case was discussed at length with Dr. Hudson Cabrera. Continue work up for syncope with a cardiology consult. Doppler of the right lower extremity was negative for DVT. Heparin subcu has been ordered along with the aspirin, this will be clarified with internal medicine. Continue pain control as needed. The patient's Optifoam dressing will be changed once the dressing is obtained. Continue routine post-operative care. Continue Kefzol for possible cellulitis. We will continue to monitor the patient closely.
[2019-05-21] MEDS: PANTOPRAZOLE 40 MG TABLET PO SCH (17:14)
[2019-05-21] MEDS: SODIUM CHLORIDE 0.9% 1,000 ML IV SCH (19:08)
--- NOTE | 2019-05-21 19:27 | US ---
EXAMINATION TYPE: US carotid duplex BILAT DATE OF EXAM: 05/21/2019 COMPARISON: CT CLINICAL HISTORY: syncope. Syncope. EXAM MEASUREMENTS: RIGHT: Peak Systolic Velocity (PSV) cm/sec ----- Right CCA: 68.6 ----- Right ICA: 77.6 ----- Right ECA: 105.6 ICA/CCA ratio: 1.1 RIGHT: End Diastole cm/sec ----- Right CCA: 10.1 ----- Right ICA: 20.4 ----- Right ECA: 0.0 LEFT: Peak Systolic Velocity (PSV) cm/sec ----- Left CCA: 71.3 ----- Left ICA: 110.4 ----- Left ECA: 122.1 ICA/CCA ratio: 1.5 LEFT: End Diastole cm/sec ----- Left CCA: 9.8 ----- Left ICA: 17.2 ----- Left ECA: 0.0 VERTEBRALS (direction of flow): Right Vertebral: Antegrade Left Vertebral: Antegrade Rhythm: Arrhythmia Hyperechoic plaque is seen bilateral carotid bifurcations and left proximal-mid CCA. No elevated velo cities obtained at this time. Right ICA/CCA is 1.1 and left ICA/CCA is 1.5. Hypoechoic area with hyperechoic center seen left neck measurin.2 x 0.8 x 0.3 cm. IMPRESSION: There is antegrade flow in the vertebral arteries. The images and measurements suggest 30% stenosis i n both internal carotid arteries. Criteria for Assigning % of Stenosis / Diameter reduction (Estimation based on the indirect measurements of the internal carotid artery velocities (ICA PSV). 1. Normal (no stenosis)=ICA PSV < 125 cm/s: ratio < 2.0: ICA EDV<40 cm/s. 2. Less than 50% stenosis=ICA PSV < 125 cm/s: ratio < 2.0: ICA EDV<40 cm/s. 3. 50 to 69% stenosis=ICA PSV of 125 to 230 cm/s: ration 2.0 ? 4.0: ICA EDV 40-100 cm/s. 4. Greater than 70% stenosis to near occlusion= ICA PSV > 230 cm/s: ratio > 4.0: ICA EDV > 100 cm/s. 5. Near occlusion= ICA PSV velocities may be low or undetectable: variable ratio and ICA EDV. 6. Total occlusion=unable to detect flow.
[2019-05-21] MEDS: ASPIRIN 325 MG TAB PO SCH (20:14)
[2019-05-21] MEDS: DOXAZOSIN 4 MG TAB PO SCH (20:14)
[2019-05-21] MEDS: SENNOSIDES-DOCUSATE SODIUM 1 EACH TAB PO PRN (20:14)
[2019-05-21] MEDS ORDERED: HEPARIN SODIUM,PORCINE 5,000 UNIT/ML 1 ML VIAL SQ SCH (21:00)
[2019-05-21 23:06] LABS: Appearance,Urine Clear (Clear); Bilirubin,Urine Negative (Negative); Blood,Urine Negative (Negative); Color,Urine Yellow; Glucose,Urine (UA) Negative (Negative); Ketones,Urine Negative (Negative); Leukocyte Esterase,Urine Negative (Negative); Nitrite,Urine Negative (Negative); PH, Urine 5.5 (5.0-8.0); Protein,Urine Negative (Negative); Specific Gravity,Urine 1.022 (1.001-1.035); Urobilinogen,Urine <2.0 mg/dL (<2.0)
[2019-05-22] MEDS: HYDROcodone/APAP 5-325MG 1 EACH TAB PO PRN ×3 (04:57→23:56)
[2019-05-22 07:20] LABS: Albumin 2.8 g/dL (3.5-5.0); Calcium 8.1 mg/dL (8.4-10.2); Potassium 3.8 mmol/L (3.5-5.1); Total Bilirubin 0.9 mg/dL (0.2-1.3); Total Protein 5.5 g/dL (6.3-8.2)
[2019-05-22 07:34] LABS: Basophils % (A) 1 %; Eosinophils # (A) 0.1 k/uL (0-0.7); Eosinophils % (A) 2 %; HCT 37.6 % (39.0-53.0); HGB 12.4 gm/dL (13.0-17.5); Lymphocytes # (A) 1.5 k/uL (1.0-4.8); Lymphocytes % (A) 20 %; MCH 35.6 pg (25.0-35.0); MCV 107.9 fL (80.0-100.0); Macrocytosis Moderate; Mean Platelet Volume 8.8; Monocytes # (A) 0.9 k/uL (0-1.0); Monocytes % (A) 13 %; Neutrophils # (A) 4.5 k/uL (1.3-7.7); Neutrophils % (A) 61 %; Platelet Count 191 k/uL (150-450); RBC 3.48 m/uL (4.30-5.90); RDW 11.9 % (11.5-15.5); WBC 7.4 k/uL (3.8-10.6)
[2019-05-22] MEDS: CHOLECALCIFEROL 1,000 UNIT TAB PO SCH (08:23)
[2019-05-22] MEDS: PANTOPRAZOLE 40 MG TABLET PO SCH ×2 (08:24→16:45)
[2019-05-22] MEDS: ASPIRIN 325 MG TAB PO SCH (08:24)
[2019-05-22] MEDS: MELOXICAM 7.5 MG TAB PO SCH (08:24)
[2019-05-22] MEDS: MULTIVITAMINS, THERA 1 EACH TAB PO SCH (08:24)
--- NOTE | 2019-05-22 09:15 | P.PN ---
Subjective Progress Note Date: 05/22/19 Principal diagnosis: Status post total right knee arthroplasty. Status post syncopal episode. Postop bleeding right knee. The patient is a 88-year-old male who is status post right total knee arthroplasty by Dr. Hudson Cabrera on 05/19/2019. The patient was discharged home yesterday and was doing well. However the patient "passed out" at home and an ambulance was called. He was out at least 8-10 minutes and did have some bradycardia. The patient states that his pain was doing well until last night when he noticed increasing pain and swelling to the knee. He currently has the On-Q pump in place still. The patient states that he has been taking one [place] every 4 hours for the pain. He denies fever, chills, rigors, shortness breath, chest pain, and abdominal pain. Today he states that his pain is minimal. He continues to have drainage to the knee. He was seen by Dr. Cabrera this morning. He has no new complaints or concerns today. Vital signs are stable. Objective - Vital Signs Vital signs: Vital Signs Temp 98.9 F 05/22/19 07:00 Pulse 75 05/22/19 07:00 Resp 16 05/22/19 07:00 BP 120/58 05/22/19 07:00 Pulse Ox 93 L 05/22/19 07:00 Intake & Output 05/21/19 05/22/19 05/22/19 18:59 06:59 18:59 Intake Total 20 Balance 20 Weight 70.307 kg Intake: Oral 20 Other: Voiding Method Toilet Toilet Urinal # Voids 1 - Exam This is a pleasant 88-year-old male in no acute distress. He is alert and oriented at this time. Exam of the right lower extremity reveals that his dressing has moderate sanguinous drainage. There is minimal active drainage at this time. There is no erythema or ecchymosis. No sign of infection. The Dermabond glue is gone. He has full foot and ankle motion without difficulty or pain. Neurovascular status to the lower extremity is intact. - Labs CBC & Chem 7: 05/22/19 06:42 05/22/19 06:42 Labs: Abnormal Lab Results - Last 24 Hours (Table) 05/21/19 05/21/19 05/22/19 Range/Units 10:47 10:47 06:42 RBC 3.70 L 3.48 L (4.30-5.90) m/uL Hgb 12.9 L 12.4 L (13.0-17.5) gm/dL Hct 37.6 L (39.0-53.0) % MCV 107.2 H 107.9 H (80.0-100.0) fL MCH 35.6 H (25.0-35.0) pg Chloride (98-107) mmol/L BUN 25 H (9-20) mg/dL Calcium (8.4-10.2) mg/dL Creatine Kinase 579 H (55-170) U/L Total Protein 5.8 L (6.3-8.2) g/dL Albumin 3.1 L (3.5-5.0) g/dL 05/22/19 Range/Units 06:42 RBC (4.30-5.90) m/uL Hgb (13.0-17.5) gm/dL Hct (39.0-53.0) % MCV (80.0-100.0) fL MCH (25.0-35.0) pg Chloride 108 H (98-107) mmol/L BUN 21 H (9-20) mg/dL Calcium 8.1 L (8.4-10.2) mg/dL Creatine Kinase (55-170) U/L Total Protein 5.5 L (6.3-8.2) g/dL Albumin 2.8 L (3.5-5.0) g/dL Assessment and Plan (1) Postoperative bleeding from incision Current Visit: Yes Status: Acute Code(s): JAR5185 - SNOMED Code(s): 278295498 (2) Syncope and collapse Current Visit: Yes Status: Acute Code(s): R55 - SYNCOPE AND COLLAPSE SNOMED Code(s): 061856011 (3) Status post total right knee replacement Current Visit: No Status: Acute Code(s): Z96.651 - PRESENCE OF RIGHT ARTIFICIAL KNEE JOINT SNOMED Code(s): 6130603921165 Plan: The clinical findings are discussed with the patient. The incisional area is cleaned and dried. Steri-Strips are applied. He is placed in a compressive dr essing. He is to refrain from bending the knee much today. He may get up with physical therapy for ambulation. If incision is dry tomorrow we will re-glue the knee and place Optifoam dressing.
--- NOTE | 2019-05-22 10:56 | P.PN ---
Subjective Progress Note Date: 05/22/19 This is a 88-year-old male who had a right total knee arthroplasty pleated 2 days ago. He also has a history of GERD, BPH and osteoarthritis. Patient presents to the emergency room after a syncopal episode. Patient had been taking his [place] 5 mg 1-2 tablets every 4-6 hours. He got up this morning to eat breakfast. He was in the kitchen and went from the fridge to the table. He sat down at the table. And he passed out. He may passed out for about 8-10 minutes. The called EMS. ER report that there was some bradycardia. He was unresponsive but did maintain a pulse and blood pressure. Patient did have loss of bladder control when he passed out. When he came to the hospital he was alert and orientated 4. Patient denies hitting his head. He also has the pain pump that is given after surgery still present on his leg. Per paramedics pupils were pinpoint upon their evaluation. Patient has increased swelling and on that right knee. He is starting to have some redness and erythema noted above the knee and just below the knee. He denies any fevers chills or sweats. Denies any chest pain or shortness of breath. Denies any nausea or vomiting. Didn't is no bowel movement yet. He is passing gas. Troponin is negative. Computed tomography scan of the brain showed no acute changes. Chest x-ray chronic changes, cardiomegaly and a small right pleural effusion. EKG was sinus rhythm with PVCs heart rate is 66 and a right bundle branch block. Venous Doppler has been ordered for the right leg to rule out DVT. Patient was started on Ancef for possible cellulitis of that right leg. Cardiology has been consulted in regards to the syncopal episode. And also consult placed for orthopedics. Patient has never had a syncopal episode in the past. On 05/22/2019 patient is resting comfortably in bed. Patient is alert and oriented 3. No further episodes of syncope. Carotid Doppler was completed showing 30% stenosis bilaterally. 2-D echo in progress. Cardiology services have been consulted. Per orthopedic services patient having significant bleeding at surgical site Damian wrap and dressing applied per surgical services. Hemoglobin remained stable at 12.4. Aspirin has been changed to 81 mg daily. Patient having elevated d-dimer 1.40. Will order CTA of the chest to rule out PE STAT. Venous Doppler negative for DVT. At this time patient denies chest pain or shortness breath. Patient denies nausea vomiting or diarrhea. Patient denies any urinary burning or frequency. UA was negative for any signs of infection. Patient remains on Ancef for mild cellulitis to right leg Objective - Vital Signs Vital signs: Vital Signs Temp 98.9 F 05/22/19 07:00 Pulse 75 05/22/19 07:00 Resp 16 05/22/19 07:00 BP 120/58 05/22/19 07:00 Pulse Ox 93 L 05/22/19 07:00 Intake & Output 05/21/19 05/22/19 05/22/19 18:59 06:59 18:59 Intake Total 20 Balance 20 Weight 70.307 kg Intake: Oral 20 Other: Voiding Method Toilet Toilet Urinal # Voids 1 - Exam Head normocephalic Neck supple Lungs clear to auscultation bilaterally no wheezing or crackles Heart regular rate and rhythm S1-S2, no rub or gallop Abdomen is soft nontender nondistended positive bowel sounds no hepatosplenom egaly Extremities the right knee is swollen significant bruising noted. There is some mild erythema noted above the knee and just below the knee. It is warm to touch. Dressing is clean dry and intact Neuro alert and orientated to 3 - Labs CBC & Chem 7: 05/22/19 06:42 05/22/19 06:42 Labs: Abnormal Lab Results - Last 24 Hours (Table) 05/21/19 05/21/19 05/22/19 Range/Units 10:47 10:47 06:42 RBC 3.70 L 3.48 L (4.30-5.90) m/uL Hgb 12.9 L 12.4 L (13.0-17.5) gm/dL Hct 37.6 L (39.0-53.0) % MCV 107.2 H 107.9 H (80.0-100.0) fL MCH 35.6 H (25.0-35.0) pg D-Dimer (<0.60) mg/L FEU Chloride (98-107) mmol/L BUN 25 H (9-20) mg/dL Calcium (8.4-10.2) mg/dL Creatine Kinase 579 H (55-170) U/L Total Protein 5.8 L (6.3-8.2) g/dL Albumin 3.1 L (3.5-5.0) g/dL 05/22/19 05/22/19 Range/Units 06:42 09:00 RBC (4.30-5.90) m/uL Hgb (13.0-17.5) gm/dL Hct (39.0-53.0) % MCV (80.0-100.0) fL MCH (25.0-35.0) pg D-Dimer 1.40 H (<0.60) mg/L FEU Chloride 108 H (98-107) mmol/L BUN 21 H (9-20) mg/dL Calcium 8.1 L (8.4-10.2) mg/dL Creatine Kinase (55-170) U/L Total Protein 5.5 L (6.3-8.2) g/dL Albumin 2.8 L (3.5-5.0) g/dL Assessment and Plan Assessment: 1. Syncopal episode: EKG sinus rhythm with PVCs and right bundle branch block heart rate of 66. Continue with telemetry monitoring. Troponin negative. Computed tomography scan of the brain showing no acute changes. Carotid Doppler completed findings suggest 30% stenosis in both internal carotid arteries 2. Elevated d-dimer. Patient having bleeding at surgical site dressing applied per orthopedic services will order CTA stat to rule out PE. Venous Doppler completed showing negative for DVT of right lower extremity. Moderate-sized popliteal cyst got present at the end of the study. 3. Right total knee arthroplasty: Surgery completed on 05/19/[address] Cabrera. 4. Possible cellulitis of the right leg. Start Ancef 1 g every 8 hours. Abby ck blood culture 5. History of BPH continue the Cardura 6. GERD continue Protonix 7. Postop bleeding right knee. Orthopedic services are following dressing reapplied hemoglobin stable 12.4. Aspirin decreased per orthopedic services GI prophylaxis Protonix and DVT prophylaxis aspirin UA negative for any signs of infection CT of the chest ordered to rule out PE due to elevated d-dimer 2D echo ordered Cardiology consult placed I performed an examination of the patient and discussed their management with the Nurse Practitioner. I have reviewed the Nurse Practitioner's notes and agree with the documented findings and plan of care
--- NOTE | 2019-05-22 11:34 | CT ---
EXAMINATION TYPE: CT chest angio for PE DATE OF EXAM: 05/22/2019 COMPARISON: 05/21/2019 HISTORY: 88-year-old male Elevated d-dimer. Syncope. Knee replacement 3 days ago. TECHNIQUE: Contiguous axial scanning of the chest performed with IV Contrast, patient injected with 1 00 mL of Isovue 370. Coronal/sagittal MIP reconstructions performed. CT DLP: 256 mGycm Automated exposure control for dose reduction was used. FINDINGS: Heart borderline in size. No flattening of the interventricular septum or reflux of contrast into the hepatic veins. No pericardial effusion. Borderline ectatic ascending aorta at 3.5 cm. Moderate atherosclerotic plaque within the aortic arch with conventional arch vessel branching anatomy. Ectatic great vessels from the aorta impressing onto the anterior wall of the trachea causing posteri or bowing of the trachea but no airway compromise, refer to sagittal image 84 for example. Large caliber to the main right and left pulmonary arteries at 2.5 and 2.8 cm, respectively, suggesti ng underlying pulmonary hypertension. Satisfactory opacification of scattered breathing motion artifa cts are present particularly in the right lower lobe limiting evaluation. No definite pulmonary embol us. Some prominent left hilar soft tissue suggesting underlying 9 mm left hilar lymph nodes, refer to axi al image 60 and 67. Calcified right hilar lymph nodes compatible with prior granulomatous disease. Trace bilateral pleural effusions. Extensive pleural parenchymal thickening at the right greater than left apices, likely scarring. A few clustered 4 mm smaller pulmonary nodules right midlung, axial image 60 through 63. Additional 4 mm right middle lobe pulmonary nodule laterally, axial image 83. Mild patchy density anteromedial right midlung, axial image 72. Calcified granuloma anterior right middle lobe. No consolidation. Moderate size hiatal hernia. Visualized upper abdomen shows otherwise no gross abnormality. Bones: Prior T12 vertebroplasty change. IMPRESSION: 1. BREATHING MOTION ARTIFACT PARTICULARLY IN THE RIGHT LOWER LOBE. NO DEFINITE PULMONARY EMBOLUS. 2. 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 3. PROMINENT THICKENED PLEURAL PARENCHYMAL SCARRING AT THE RIGHT GREATER THAN LEFT APICES. GIVEN THE DEGREE OF THICKENING, SIX-MONTH FOLLOW-UP CT CAN REASSESS FOR STABILITY. 4. SCATTERED 4 MM PULMONARY NODULES ON THE RIGHT. GIVEN EVIDENCE OF PRIOR GRANULOMATOUS DISEASE, NONC ALCIFIED GRANULOMAS ARE POSSIBLE. A COUPLE BORDERLINE ENLARGED LEFT HILAR LYMPH NODES MEASURING UP TO 9 MM MAY BE REACTIVE/POST INFLAMMATORY. THESE FINDINGS SHOULD ALSO BE ASSESSED ON THE 6 MONTH FOLLOW -UP. 5. SMALL INFECTIOUS/INFLAMMATORY PATCHY INFILTRATE ANTEROMEDIAL RIGHT MID LUNG. 6. MODERATE SIZED HIATAL HERNIA.
--- NOTE | 2019-05-22 11:39 | ECHOF ---
Referral Reason:Syncope MEASUREMENTS -------- HEIGHT: 172.7 cm WEIGHT: 70.3 kg BP: 168/67 RVIDd: 3.6 cm (< 3.3) IVSd: 1.0 cm (0.6 - 1.1) LVIDd: 3.6 cm (3.9 - 5.3) LVPWd: 1.1 cm (0.6 - 1.1) IVSs: 1.4 cm LVIDs: 2.5 cm LVPWs: 1.8 cm LA Diam: 4.2 cm (2.7 - 3.8) LAESV Index (A-L): 34.41 ml/m Ao Diam: 3.6 cm (2.0 - 3.7) AV Cusp: 1.5 cm (1.5 - 2.6) MV EXCURSION: 18.612 mm (> 18.000) MV EF SLOPE: 105 mm/s (70 - 150) EPSS: 0.6 cm MV E Kristian: 0.53 m/s MV DecT: 318 ms MV A Kristian: 1.04 m/s MV E/A Ratio: 0.51 RAP: 5.00 mmHg RVSP: 26.80 mmHg FINDINGS -------- BBB This was a technically good study. The left ventricular size is normal. Left ventricular wall thickness is normal. Overall left vent ricular systolic function is low-normal with, an EF between 50 - 55 %. The right ventricle is normal in size. The left atrium is mildly dilated. LA is midly dilated 29-33ml/m2. The right atrial size is normal. The aortic valve is trileaflet, and appears structurally normal. No aortic stenosis or regurgitation. Mild mitral annular calcification present. Mild mitral regurgitation is present. Mild tricuspid regurgitation present. Right ventricular systolic pressure is normal at < 35 mmHg. There is no evidence of pulmonary hypertension. There is no pulmonic regurgitation present. The aortic root size is normal. There is no pericardial effusion. CONCLUSIONS -------- 1. BBB 2. This was a technically good study. 3. The left ventricular size is normal. 4. Left ventricular wall thickness is normal. 5. Overall left ventricular systolic function is low-normal with, an EF between 50 - 55 %. 6. The right ventricle is normal in size. 7. The left atrium is mildly dilated. 8. LA is midly dilated 29-33ml/m2. 9. The right atrial size is normal. 10. The aortic valve is trileaflet, and appears structurally normal. No aortic stenosis or regurgitat ion. 11. Mild mitral annular calcification present. 12. Mild mitral regurgitation is present. 13. Mild tricuspid regurgitation present. 14. Right ventricular systolic pressure is normal at < 35 mmHg. 15. There is no evidence of pulmonary hypertension. 16. There is no pulmonic regurgitation present. 17. The aortic root size is normal. 18. There is no pericardial effusion. LUSTERER: Joanna Holcomb RDCS
--- NOTE | 2019-05-22 13:39 | P.CRDCN ---
History of Present Illness History of present illness: HISTORY OF PRESENTING ILLNESS This is a pleasant 88-year-old male past medical history significant for hypertension, BPH, arthritis and is status post right knee arthroscopic surgery. 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 We have been asked to see in consultation for syncope. He underwent his right knee procedure 05/19/2019. He was home yesterday morning and walked from the kitchen to the dining room table to sit down and eat breakfast. He did not feel dizzy or lightheaded while ambulating. He states he sat down and took one bite of his cereal and next thing he remembers there were multiple paramedics surrounding him. Per his she saw him slump over on the table. She was shouting his name, smacking his face and shaking him. He did not respond for approximately 10 minutes. She states he was [place] in color and she didn't feel a pulse. Upon EMS arrival blood pressure was 70/30 with a pulse rate of 57, repeat 90/60 pulse in the 60's per EMS reports reviewed in the chart. The patient denies feeling chest pain, shortness of breath, palpitations, nausea, vomiting or diaphoresis. He is seen and examined resting comfortably in bed eating breakfast in no acute distress. He has had no further symptoms of syncope since arrival at the hospital. Echocardiogram obtained reveals preserved LV systolic function with ejection fraction 50-55%, mild MR and mild TR. DIAGNOSTICS EKG reveals right bundle branch block with underlying sinus mechanism and PAC noted. Chest xray reveals chronic changes and cardiomegaly with a small right pleural effusion. CT of the brain is negative for an acute intracranial abnormality. CTA chest reveals breathing motion artifact particularly in the right lower lobe, no definite PE, scattered 4 mm pulmonary nodules noted on the right and small infectious or inflammatory patchy infiltrate in the right midlung with a moderate sized hiatal hernia. Laboratory reviewed, WBC 7.4, hemoglobin 12.4, platelets 191, d-dimer 1.4, sodium 137, potassium 3.8, creatinine 0.88, cardiac enzymes negative 3. Current cardiac medications include aspirin 325 mg twice a day secondary to arthritis, Hytrin 5 mg at bedtime for BPH. REVIEW OF SYSTEMS At the time of my exam: CONSTITUTIONAL: Denies fever or chills. CARDIOVASCULAR: Denies chest pain, shortness of breath, orthopnea, PND or palpitations. RESPIRATORY: Denies cough. GASTROINTESTINAL: Denies abdominal pain, diarrhea, constipation, nausea or vomiting. MUSCULOSKELETAL: Denies myalgias. NEUROLOGIC: Denies numbness, tingling or weakness. ENDOCRINE: Denies fatigue, weight change, polydipsia or polyurina. GENITOURINARY: Denies burning, hematuria or urgency with micturation. HEMATOLOGIC: Denies history of anemia or bleeding. PHYSICAL EXAMINATION Blood pressure 120/58 heart rate 75 afebrile and maintaining oxygen saturation on room air. CONSTITUTIONAL: No apparent distress. HEENT: Head is normocephalic. Pupils are equal, round. Sclerae anicteric. Mucous membranes of the mouth are moist. No JVD. No carotid bruit. CHEST EXAMINATION: Lungs are clear to auscultation. No chest wall tenderness is noted on palpation or with deep breathing. HEART EXAMINATION: Regular rate and rhythm. S1, S2 heard. Soft systolic ejec tion murmur at the left sternal border, no gallops or rub. ABDOMEN: Soft, nontender. Positive bowel sounds. EXTREMITIES: 2+ peripheral pulses and no calf tenderness. Trace edema at the right lower extremity, nonpitting. Damian wrap and place her on the right knee. NEUROLOGIC EXAMINATION: Patient is awake, alert and oriented x3. ASSESSMENT Syncope, likely related to a drop in blood pressure. No evidence of an acute arrhythmia thus far. 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 Check for orthostatic changes. Recommend 24 hours of telemetry monitoring with increased activity and ambula tion as tolerated around the unit with his walker. Repeat CBC and EKG in the morning. We will continue to follow and make recommendations accordingly. Thank you kindly for this consultation. Nurse Practitioner note has been reviewed, I agree with a documented findings and plan of care. Patient was seen and examined. Past Medical History Past Medical History: GERD/Reflux, Hearing Disorder / Deafness, Osteoarthritis (OA), Pneumonia, Prostate Disorder, Syncope Additional Past Medical History / Comment(s): BPH, urinary retention, arthritis in multiple joints, chronic back pain-"collapsed vertebrae", [place] bilaterally- aides are in for repair. History of Any Multi-Drug Resistant Organisms: None Reported Past Surgical History: Joint Replacement, Orthopedic Surgery Additional Past Surgical History / Comment(s): R knee arthroscopy, 05/19/19 total R knee arthroplasty, kyphoplasty, deviated septum surgery, colonoscopies, bilateral cataract removals/lens implants. Past Anesthesia/Blood Transfusion Reactions: No Reported Reaction Past Psychological History: No Psychological Hx Reported Additional Psychological History / Comment(s): Pt resides with his spouse. He is currently using a walker to ambulate post total R knee. He cannot drive at this time, spouse can drive. He is to start home PT-thinks thru [facility]. He has a toilet raiser, shower chair. Smoking Status: Never smoker Past Alcohol Use History: Occasional Past Drug Use History: None Reported - Past Family History Mother Family Medical History: CVA/TIA Father Family Medical History: Myocardial Infarction ([place]) Additional Family Medical History / Comment(s): AT AGE 49 Medications and Allergies Home Medications Medication Instructions Recorded Confirmed Type Omeprazole [PriLOSEC] 20 mg PO BID 10/07/14 05/21/19 History Terazosin [Hytrin] 5 mg PO HS 10/07/14 05/21/19 History Multivitamins, Thera [Multivitamin 1 each PO DAILY 12/06/14 05/21/19 History (formulary)] Cholecalciferol [Vitamin D3 (25 5,000 unit PO DAILY 05/15/19 05/21/19 History Mcg = 1000 Iu)] Aspirin 325 mg PO BID #60 tab 05/19/19 05/21/19 Rx Celecoxib [CeleBREX] 200 mg PO BID 05/21/19 05/21/19 History HYDROcodone/APAP 5-325MG [[place] 5] 1 - 2 tab PO Q4-6H PRN 05/21/19 05/21/19 History Sennosides-Docusate Sodium 2 tab PO DAILY PRN 05/21/19 05/21/19 History [Senokot-S] Allergies Allergy/AdvReac Type Severity Reaction Status Date / Time No Known Allergies Allergy Verified 05/21/19 11:23 Physical Exam Vitals: Vital Signs Temp Pulse Resp BP Pulse Ox 05/22/19 07:00 98.9 F 75 16 120/58 93 L 05/22/19 02:20 98.3 F 81 17 129/70 94 L 05/21/19 21:04 76 117/73 05/21/19 20:01 98.5 F 86 15 95/57 93 L 05/21/19 16:00 20 05/21/19 13:40 98.1 F 89 17 109/61 99 Intake and Output 05/21/19 05/22/19 05/22/19 22:59 06:59 14:59 Intake Total 20 Balance 20 Intake: Oral 20 Other: Voiding Method Toilet Toilet # Voids 1 Results 05/22/19 06:42 05/22/19 06:42 Cardiac Enzymes 05/21/19 05/21/19 05/22/19 Range/Units 15:48 23:05 06:42 AST 40 (17-59) U/L Troponin I <0.012 <0.012 (0.000-0.034) ng/mL CBC 05/22/19 Range/Units 06:42 WBC 7.4 (3.8-10.6) k/uL RBC 3.48 L (4.30-5.90) m/uL Hgb 12.4 L (13.0-17.5) gm/dL Hct 37.6 L (39.0-53.0) % Plt Count 191 (150-450) k/uL Comprehensive Metabolic Panel 05/22/19 Range/Units 06:42 Sodium 137 (137-145) mmol/L Potassium 3.8 (3.5-5.1) mmol/L Chloride 108 H (98-107) mmol/L Carbon Dioxide 26 (22-30) mmol/L BUN 21 H (9-20) mg/dL Creatinine 0.88 (0.66-1.25) mg/dL Glucose 81 (74-99) mg/dL Calcium 8.1 L (8.4-10.2) mg/dL AST 40 (17-59) U/L ALT 16 (4-49) U/L Alkaline Phosphatase 57 (38-126) U/L Total Protein 5.5 L (6.3-8.2) g/dL Albumin 2.8 L (3.5-5.0) g/dL Current Medications Generic Name Dose Route Start Last Admin Trade Name Freq PRN Reason Stop Dose Admin Hydrocodone Bitart/Acetaminophen 1 each 05/21/19 12:37 05/22/19 04:57 [place] 5-325 PO 1 each Q4H PRN Administration Pain Aspirin 81 mg 05/23/19 09:00 Aspirin PO DAILY KERLINE Cholecalciferol 5,000 unit 05/22/19 09:00 05/22/19 08:23 Vitamin D3 (25 Mcg = 1000 Iu) PO 5,000 unit DAILY KERLINE Administration Doxazosin Mesylate 4 mg 05/21/19 21:00 05/21/19 20:14 Cardura PO 4 mg HS KERLINE Administration Sodium Chloride 1,000 mls @ 20 mls/hr 05/21/19 12:45 05/21/19 19:08 Saline 0.9% IV Not Given .Q24H KERLINE Cefazolin Sodium 1,000 mg/ 50 mls @ 100 mls/hr 05/21/19 16:00 05/22/19 09:02 Sodium Chloride IVPB 100 mls/hr Q8HR KERLINE Administration Meloxicam 15 mg 05/21/19 14:00 05/22/19 08:24 Mobic PO 15 mg DAILY KERLINE Administration Multivitamins 1 each 05/22/19 09:00 05/22/19 08:24 Theragran PO 1 each DAILY KERLINE Administration Naloxone HCl 0.2 mg 05/21/19 12:35 Narcan IV Q2M PRN Opioid Reversal Pantoprazole Sodium 40 mg 05/21/19 17:30 05/22/19 08:24 Protonix PO 40 mg AC-BID KERLINE Administration Senna/Docusate Sodium 2 each 05/21/19 12:37 05/21/19 20:14 Senokot-S PO 2 each DAILY PRN Administration Constipation Intake and Output 05/21/19 05/22/19 05/22/19 22:59 06:59 14:59 Intake Total 20 Balance 20 Intake: Oral 20 Other: Voiding Method Toilet Toilet # Voids 1 05/22/19 06:42 05/22/19 06:42
[2019-05-22] MEDS: SODIUM CHLORIDE 0.9% 1,000 ML IV SCH (14:07)
--- NOTE | 2019-05-22 16:45 | P.CNPUL ---
History of Present Illness Consult date: 05/22/19 Reason for consult: other (Abnormal CT of the chest.) Chief complaint: Passing out/syncope History of present illness: This is an 88-year-old white male with history of hypertension, recent right knee arthroscopic surgery, presented to the hospital with mostly symptoms of syncope. His the procedure was on 05/19/19, and yesterday while at home, patient walked from the kitchen to the dining room table, sat down and ate breakfast. [place] dizzy and lightheaded while ambulating. Then he took a bite of his cereal, and all he remembers is paramedics surrounding him. Apparently the patient had a passing out episode. notices that he slumped over on the table. She Shouting his name and smacking his face, shaking him, and he did not respond for almost 10 minutes. Upon arrival of EMS, his blood pressure was 70/30 and heart rate was 57. Symptoms lasted for about 10 minutes according to his . Patient doesn't remember any warning signs prior to this happening except he was feeling lightheaded and dizzy just before it happened. Presently the patient denies any headache, blurred vision or dizziness, denies any chest pain, denies any orthopnea. EKG on admission showed a right bundle branch block and sinus rhythm. Occasional premature atrial contractions noted. CT of the brain was negative. CT angios gram of the chest was done, there was no evidence of pulmonary embolism, nonspecific scattered pulmonary nodules were noted. And moderate sized hiatal hernia. The findings on the CT of the chest are basically nonspecific, and I would recommend a repeat CT of the chest in about 4-5 months. Patient never smoked, and he had no previous history of malignancy. Bilateral venous Doppler negative for deep vein thrombosis, popliteal cyst was noted. Review of Systems CONSTITUTIONAL: Denies fever or chills. Denies weight loss. CARDIOVASCULAR: Denies chest pain, shortness of breath, orthopnea, PND or palpitations. RESPIRATORY: Denies wheezing cough shortness of breath or chest pain.. GASTROINTESTINAL: Denies nausea vomiting abdominal pain melena or hematemesis. MUSCULOSKELETAL: Denies any arthralgia or myalgia. Denies any limitations in range of motion NEUROLOGIC: As noted in HPI, mostly a syncopal episode. ENDOCRINE: Denies heat or cold intolerance, denies polyuria polydipsia. GENITOURINARY: Denies hematuria dysuria frequency urgency. HEMATOLOGIC: Denies clotting bleeding or bruising. Psychiatric: Denies any symptoms of depression. Skin: Denies any rashes. Past Medical History Past Medical History: GERD/Reflux, Hearing Disorder / Deafness, Osteoarthritis (OA), Pneumonia, Prostate Disorder, Syncope Additional Past Medical History / Comment(s): BPH, urinary retention, arthritis in multiple joints, chronic back pain-"collapsed vertebrae", [place] bilaterally- aides are in for repair. History of Any Multi-Drug Resistant Organisms: None Reported Past Surgical History: Joint Replacement, Orthopedic Surgery Additional Past Surgical History / Comment(s): R knee arthroscopy, 05/19/19 total R knee arthroplasty, kyphoplasty, deviated septum surgery, colonoscopies, bilateral cataract removals/lens implants. Past Anesthesia/Blood Transfusion Reactions: No Reported Reaction Past Psychological History: No Psychological Hx Reported Additional Psychological History / Comment(s): Pt resides with his spouse. He is currently using a walker to ambulate post total R knee. He cannot drive at this time, spouse can drive. He is to start home PT-thinks thru [facility]. He has a toilet raiser, shower chair. Smoking Status: Never smoker Past Alcohol Use History: Occasional Past Drug Use History: None Reported - Past Family History Mother Family Medical History: CVA/TIA Father Family Medical History: Myocardial Infarction ([place]) Additional Family Medical History / Comment(s): AT AGE 49 Medications and Allergies Home Medications Medication Instructions Recorded Confirmed Type Omeprazole [PriLOSEC] 20 mg PO BID 10/07/14 05/21/19 History Terazosin [Hytrin] 5 mg PO HS 10/07/14 05/21/19 History Multivitamins, Thera [Multivitamin 1 each PO DAILY 12/06/14 05/21/19 History (formulary)] Cholecalciferol [Vitamin D3 (25 5,000 unit PO DAILY 05/15/19 05/21/19 History Mcg = 1000 Iu)] Aspirin 325 mg PO BID #60 tab 05/19/19 05/21/19 Rx Celecoxib [CeleBREX] 200 mg PO BID 05/21/19 05/21/19 History HYDROcodone/APAP 5-325MG [[place] 5] 1 - 2 tab PO Q4-6H PRN 05/21/19 05/21/19 History Sennosides-Docusate Sodium 2 tab PO DAILY PRN 05/21/19 05/21/19 History [Senokot-S] Allergies Allergy/AdvReac Type Severity Reaction Status Date / Time No Known Allergies Allergy Verified 05/21/19 11:23 Physical Exam Vitals: Vital Signs Temp Pulse Resp BP Pulse Ox 05/22/19 13:40 98.7 F 79 16 129/67 94 L 05/22/19 07:00 98.9 F 75 16 120/58 93 L 05/22/19 02:20 98.3 F 81 17 129/70 94 L 05/21/19 21:04 76 117/73 05/21/19 20:01 98.5 F 86 15 95/57 93 L Intake and Output 05/22/19 05/22/19 05/22/19 06:59 14:59 22:59 Intake Total 20 Balance 20 Intake: Oral 20 Other: Voiding Method Toilet # Voids 3 Physical Exam: Revealed a 88-year-old white male in no distress. Head: Atraumatic, normocephalic. HEENT:[Neck is supple.] [No neck masses.] [No thyromegaly.] [No JVD.] PERRLA, EOMI, no icterus. Chest: [Clear throughout, no crackles, no rhonchi, no wheezes.] Cardiac Exam: [Normal S1 and S2, no S3 gallop, no murmur.] Abdomen: [Soft, nontender, no megaly, no rebound, no guarding, normal bowel sounds.] Extremities: Right lower extremity swelling, wrapped with Damian wrapping, no tenderness on palpation. Damian wrap also noted on the right knee. Neurological Exam: [No focal neurologic deficit.] Alert and oriented 3. Psychiatric: Normal mood, affect and normal mental status examination. Skin: No rashes. Musculoskeletal: No deformities, and limitations in range of motion. Results - Laboratory Findings CBC and BMP: 05/22/19 06:42 05/22/19 06:42 PT/INR, D-dimer PT 10.6 sec (9.0-12.0) 05/21/19 10:47 INR 1.0 (<1.2) 05/21/19 10:47 D-Dimer 1.40 mg/L FEU (<0.60) H 05/22/19 09:00 Abnormal lab findings: Abnormal Labs 05/21/19 05/21/19 05/22/19 10:47 10:47 06:42 RBC 3.70 L 3.48 L Hgb 12.9 L 12.4 L Hct 37.6 L MCV 107.2 H 107.9 H MCH 35.6 H D-Dimer Chloride BUN 25 H Calcium Creatine Kinase 579 H Total Protein 5.8 L Albumin 3.1 L 05/22/19 05/22/19 06:42 09:00 RBC Hgb Hct MCV MCH D-Dimer 1.40 H Chloride 108 H BUN 21 H Calcium 8.1 L Creatine Kinase Total Protein 5.5 L Albumin 2.8 L - Diagnostic Findings CT scan - chest: image reviewed (As noted in HPI.) Assessment and Plan Assessment: Impression: Syncope with drop in blood pressure and heart rate, likely cardiac unless proven otherwise. Abnormal CT of the chest, showing multiple pulmonary nodules, nonspecific, and nonspecific adenopathy, pleural thickening, all findings are nonspecific, best to repeat CT of the chest in the next 4-6 months. Right total knee arthroplasty on 05/19/19, however patient had negative Doppler of the leg and negative CT angiogram for pulmonary embolism which practically speaking ruled out pulmonary embolism. History of benign prostatic hypertrophy. History of GERD. Hiatal hernia as noted on CT angiogram of the chest. Recommendation: Continue present treatment plan as per the admitting service and cardiology on the case. Patient was advised to make an appointment with me in the next 4 months for follow-up on outpatient basis, Patient is to see me sooner on outpatient basis if he develops any worsening pulmonary symptoms. We will follow on when necessary basis. Time with Patient: Greater than 30
[2019-05-22] MEDS: DOXAZOSIN 4 MG TAB PO SCH (21:18)
[2019-05-23 06:41] LABS: Albumin 2.8 g/dL (3.5-5.0); Calcium 7.9 mg/dL (8.4-10.2); Potassium 3.8 mmol/L (3.5-5.1); Total Bilirubin 0.7 mg/dL (0.2-1.3); Total Protein 5.3 g/dL (6.3-8.2)
[2019-05-23 06:47] LABS: HCT 36.1 % (39.0-53.0); HGB 11.8 gm/dL (13.0-17.5); MCH 34.9 pg (25.0-35.0); MCHC 32.8 g/dL (31.0-37.0); MCV 106.4 fL (80.0-100.0); Macrocytosis Slight; Mean Platelet Volume 8.1; Platelet Count 182 k/uL (150-450); RDW 11.9 % (11.5-15.5)
[2019-05-23 06:59] LABS: Eosinophils # (M) 0.14 k/uL (0-0.7); Lymphocytes # (M) 1.75 k/uL (1.0-4.8); Monocytes # (M) 1.19 k/uL (0-1.0); Neutrophils # (M) 3.92 k/uL (1.3-7.7); Neutrophils % (M) 56 %; Nucleated Red Blood Cells 0 /100 WBC (0-0); Total Cells Counted 100
[2019-05-23] MEDS: MELOXICAM 7.5 MG TAB PO SCH (08:03)
[2019-05-23] MEDS: CHOLECALCIFEROL 1,000 UNIT TAB PO SCH (08:04)
[2019-05-23] MEDS: PANTOPRAZOLE 40 MG TABLET PO SCH ×2 (08:04→16:08)
[2019-05-23] MEDS: MULTIVITAMINS, THERA 1 EACH TAB PO SCH (08:04)
[2019-05-23] MEDS: ASPIRIN 81 MG PO SCH (08:04)
--- NOTE | 2019-05-23 09:26 | P.PN ---
Subjective Progress Note Date: 05/23/19 The patient was interviewed and examined resting comfortably in bed. He does report new onset of thigh discomfort, likely related to his recent knee arthroplasty. He states they did remove local pain infusion pump yesterday. He states he has gotten up and ambulated with assistance and denies any associated dizziness and lightheadedness. He also denies any chest discomfort, dyspnea, or palpitations. GENERAL: Well-appearing, well-nourished and in no acute distress. NECK: Supple without JVD or thyromegaly. LUNGS: Breath sounds clear to auscultation bilaterally. Respiration equal and unlabored. No wheezes, rales or rhonchi. HEART: Regular rate and rhythm without murmurs, rubs or gallops. S1 and S2 heard. EXTREMITIES: Normal range of motion, no edema. No clubbing or cyanosis. Peripheral pulses intact and strong. Right lower extremity Damian wrap. Vital signs: Blood pressures ranging in the 120s to 130's systolic. Heart rates in the 70s to 80s overnight. Maintaining greater than 93% on room air Assessment: #1 syncope, likely related to hypotension #2 status post right total knee arthroplasty on 05/19/2019 #3 BPH Plan: No arrhythmias noted on telemetry monitoring. Gradual progression and activity as tolerated, and as long as he continues to be asymptomatic, he is cleared to be discharged from the cardiac standpoint. Objective - Vital Signs Vital signs: Vital Signs Temp 97.9 F 05/23/19 07:00 Pulse 85 05/23/19 07:00 Resp 17 05/23/19 07:00 BP 130/74 05/23/19 07:00 Pulse Ox 93 L 05/23/19 08:57 Intake & Output 05/22/19 05/23/19 05/23/19 18:59 06:59 18:59 Other: Voiding Method Toilet # Voids 2 3 # Bowel Movements 1 - Labs CBC & Chem 7: 05/23/19 06:13 05/23/19 06:13 Labs: Abnormal Lab Results - Last 24 Hours (Table) 05/22/19 05/23/19 05/23/19 Range/Units 09:00 06:13 06:13 RBC 3.40 L (4.30-5.90) m/uL Hgb 11.8 L (13.0-17.5) gm/dL Hct 36.1 L (39.0-53.0) % MCV 106.4 H (80.0-100.0) fL Monocytes # (Manual) 1.19 H (0-1.0) k/uL D-Dimer 1.40 H (<0.60) mg/L FEU Sodium 136 L (137-145) mmol/L Calcium 7.9 L (8.4-10.2) mg/dL Total Protein 5.3 L (6.3-8.2) g/dL Albumin 2.8 L (3.5-5.0) g/dL Microbiology - Last 24 Hours (Table) 05/21/19 15:48 Blood Culture - Preliminary Blood No Growth after 24 hours
--- NOTE | 2019-05-23 09:57 | P.PN ---
Subjective Progress Note Date: 05/23/19 Principal diagnosis: Status post total right knee arthroplasty. Status post syncopal episode. Postop bleeding right knee. The patient is a 88-year-old male who is status post right total knee arthroplasty by Dr. Hudson Cabrera on 05/19/2019. The patient was discharged home on 05/20/2019 and was doing well. However the patient "passed out" at home and an ambulance was called. He was out at least 8-10 minutes and did have some bradycardia. The patient states that his pain was doing well until he noticed increasing pain and swelling to the knee. The patient states that he has been taking one Solomon every 4 hours for the pain. He denies fever, chills, rigors, shortness breath, chest pain, and abdominal pain. Today he states that his pain is minimal. His drainage is significantly improved. He has no new complaints or concerns today. Vital signs are stable. Objective - Vital Signs Vital signs: Vital Signs Temp 97.9 F 05/23/19 07:00 Pulse 85 05/23/19 07:00 Resp 17 05/23/19 07:00 BP 130/74 05/23/19 07:00 Pulse Ox 93 L 05/23/19 08:57 Intake & Output 05/22/19 05/23/19 05/23/19 18:59 06:59 18:59 Other: Voiding Method Toilet # Voids 2 3 # Bowel Movements 1 - Exam This is a pleasant 88-year-old male in no acute distress. He is alert and oriented at this time. Exam of the right lower extremity reveals that his dressing has very scant bloody drainage. Steri-Strips are intact. There is a blister noted to the medial aspect of the incisional area. There is no active drainage at this time. There is no erythema or ecchymosis. No sign of infection. The Dermabond glue is gone. He has full foot and ankle motion without difficulty or pain. Neurovascular status to the lower extremity is intact. - Labs CBC & Chem 7: 05/23/19 06:13 05/23/19 06:13 Labs: Abnormal Lab Results - Last 24 Hours (Table) 05/23/19 05/23/19 Range/Units 06:13 06:13 RBC 3.40 L (4.30-5.90) m/uL Hgb 11.8 L (13.0-17.5) gm/dL Hct 36.1 L (39.0-53.0) % MCV 106.4 H (80.0-100.0) fL Monocytes # (Manual) 1.19 H (0-1.0) k/uL Sodium 136 L (137-145) mmol/L Calcium 7.9 L (8.4-10.2) mg/dL Total Protein 5.3 L (6.3-8.2) g/dL Albumin 2.8 L (3.5-5.0) g/dL Microbiology - Last 24 Hours (Table) 05/21/19 15:48 Blood Culture - Preliminary Blood No Growth after 24 hours Assessment and Plan (1) Postoperative bleeding from incision Current Visit: Yes Status: Acute Code(s): LWR2892 - SNOMED Code(s): 540015131 (2) Syncope and collapse Current Visit: Yes Status: Acute Code(s): R55 - SYNCOPE AND COLLAPSE SNOMED Code(s): 893886979 (3) Status post total right knee replacement Current Visit: No Status: Acute Code(s): Z96.651 - PRESENCE OF RIGHT ARTIFICIAL KNEE JOINT SNOMED Code(s): 3766878403687 Plan: The clinical findings are discussed with the patient. A complete Steri-Strips are replaced. The blister is decompressed and an Adaptic is placed over the are a. An Optifoam dressing is then placed over the entire incision and blistered area. He is placed in a compressive dressing. He is to refrain from bending the knee much today. He may get up with physical therapy for ambulation. He is cleared from a cardiology standpoint for discharge. I would like therapy to work with him today. If the drainage is minimal and stable tomorrow he may be discharged to home.
[2019-05-23] MEDS: HYDROcodone/APAP 5-325MG 1 EACH TAB PO PRN ×2 (14:40→21:13)
[2019-05-23] MEDS: SODIUM CHLORIDE 0.9% 1,000 ML IV SCH (14:45)
--- NOTE | 2019-05-23 14:46 | P.PN ---
Subjective Progress Note Date: 05/23/19 This is a 88-year-old male who had a right total knee arthroplasty pleated 2 days ago. He also has a history of GERD, BPH and osteoarthritis. Patient presents to the emergency room after a syncopal episode. Patient had been taking his [place] 5 mg 1-2 tablets every 4-6 hours. He got up this morning to eat breakfast. He was in the kitchen and went from the fridge to the table. He sat down at the table. And he passed out. He may passed out for about 8-10 minutes. The called EMS. ER report that there was some bradycardia. He was unresponsive but did maintain a pulse and blood pressure. Patient did have loss of bladder control when he passed out. When he came to the hospital he was alert and orientated 4. Patient denies hitting his head. He also has the pain pump that is given after surgery still present on his leg. Per paramedics pupils were pinpoint upon their evaluation. Patient has increased swelling and on that right knee. He is starting to have some redness and erythema noted above the knee and just below the knee. He denies any fevers chills or sweats. Denies any chest pain or shortness of breath. Denies any nausea or vomiting. Didn't is no bowel movement yet. He is passing gas. Troponin is negative. Computed tomography scan of the brain showed no acute changes. Chest x-ray chronic changes, cardiomegaly and a small right pleural effusion. EKG was sinus rhythm with PVCs heart rate is 66 and a right bundle branch block. Venous Doppler has been ordered for the right leg to rule out DVT. Patient was started on Ancef for possible cellulitis of that right leg. Cardiology has been consulted in regards to the syncopal episode. And also consult placed for orthopedics. Patient has never had a syncopal episode in the past. On 05/22/2019 patient is resting comfortably in bed. Patient is alert and oriented 3. No further episodes of syncope. Carotid Doppler was completed showing 30% stenosis bilaterally. 2-D echo in progress. Cardiology services have been consulted. Per orthopedic services patient having significant bleeding at surgical site Damian wrap and dressing applied per surgical services. Hemoglobin remained stable at 12.4. Aspirin has been changed to 81 mg daily. Patient having elevated d-dimer 1.40. Will order CTA of the chest to rule out PE STAT. Venous Doppler negative for DVT. At this time patient denies chest pain or shortness breath. Patient denies nausea vomiting or diarrhea. Patient denies any urinary burning or frequency. UA was negative for any signs of infection. Patient remains on Ancef for mild cellulitis to right leg Objective - Vital Signs Vital signs: Vital Signs Temp 97.9 F 05/23/19 07:00 Pulse 85 05/23/19 07:00 Resp 17 05/23/19 07:00 BP 130/74 05/23/19 07:00 Pulse Ox 93 L 05/23/19 08:57 Intake & Output 05/22/19 05/23/19 05/23/19 18:59 06:59 18:59 Other: Voiding Method Toilet # Voids 2 3 # Bowel Movements 1 - Exam Patient is alert and oriented 3 in no apparent distress Head normocephalic and atraumatic Neck supple no JVD no goiter Lungs clear to auscultation bilaterally no wheezing or crackles Heart regular rate and rhythm S1-S2, no rub or gallop Abdomen is soft nontender nondistended positive bowel sounds no hepatosplenomega ly Extremities the right knee is swollen significant bruising noted. There is some mild erythema noted above the knee and just below the knee. It is warm to touch. Dressing is clean dry and intact Neuro no gross focal neurological deficit - Labs CBC & Chem 7: 05/23/19 06:13 05/23/19 06:13 Labs: Abnormal Lab Results - Last 24 Hours (Table) 05/23/19 05/23/19 Range/Units 06:13 06:13 RBC 3.40 L (4.30-5.90) m/uL Hgb 11.8 L (13.0-17.5) gm/dL Hct 36.1 L (39.0-53.0) % MCV 106.4 H (80.0-100.0) fL Monocytes # (Manual) 1.19 H (0-1.0) k/uL Sodium 136 L (137-145) mmol/L Calcium 7.9 L (8.4-10.2) mg/dL Total Protein 5.3 L (6.3-8.2) g/dL Albumin 2.8 L (3.5-5.0) g/dL Microbiology - Last 24 Hours (Table) 05/21/19 15:48 Blood Culture - Preliminary Blood No Growth after 24 hours Assessment and Plan Plan: 1. Syncopal episode: EKG sinus rhythm with PVCs and right bundle branch block heart rate of 66. Continue with telemetry monitoring. Troponin negative. C omputed tomography scan of the brain showing no acute changes. Carotid Doppler completed findings suggest 30% stenosis in both internal carotid arteries 2. Elevated d-dimer. Patient having bleeding at surgical site dressing applied per orthopedic services will order CTA stat to rule out PE. Venous Doppler completed showing negative for DVT of right lower extremity. Moderate-sized popliteal cyst got present at the end of the study. 3. Right total knee arthroplasty: Surgery completed on 05/19/[address] Cabrera. 4. Possible cellulitis of the right leg. Start Ancef 1 g every 8 hours. Check blood culture 5. History of BPH continue the Cardura 6. GERD continue Protonix 7. Postop bleeding right knee. Orthopedic services are following dressing reapplied hemoglobin stable 12.4. Aspirin decreased per orthopedic services GI prophylaxis Protonix and DVT prophylaxis aspirin UA negative for any signs of infection CT of the chest ordered to rule out PE due to elevated d-dimer 2D echo ordered Cardiology consult placed, input reviewed Continue to monitor possible discharge to home tomorrow if stable
[2019-05-23] MEDS: DOXAZOSIN 4 MG TAB PO SCH (21:13)
[2019-05-24] MEDS: HYDROcodone/APAP 5-325MG 1 EACH TAB PO PRN (03:05)
[2019-05-24 06:23] LABS: Albumin 2.7 g/dL (3.5-5.0); Basophils % (A) 1 %; Calcium 8.1 mg/dL (8.4-10.2); Eosinophils # (A) 0.2 k/uL (0-0.7); Eosinophils % (A) 4 %; HCT 35.3 % (39.0-53.0); HGB 11.7 gm/dL (13.0-17.5); Lymphocytes # (A) 1.5 k/uL (1.0-4.8); Lymphocytes % (A) 23 %; MCH 35.4 pg (25.0-35.0); MCHC 33.2 g/dL (31.0-37.0); MCV 106.7 fL (80.0-100.0); Macrocytosis Slight; Monocytes # (A) 0.7 k/uL (0-1.0); Monocytes % (A) 11 %; Neutrophils # (A) 3.6 k/uL (1.3-7.7); Neutrophils % (A) 57 %; Platelet Count 215 k/uL (150-450); Potassium 4.4 mmol/L (3.5-5.1); RBC 3.31 m/uL (4.30-5.90); RDW 11.8 % (11.5-15.5); Total Bilirubin 0.7 mg/dL (0.2-1.3); Total Protein 5.4 g/dL (6.3-8.2); WBC 6.4 k/uL (3.8-10.6)
[2019-05-24] MEDS: PANTOPRAZOLE 40 MG TABLET PO SCH (07:48)
[2019-05-24] MEDS: MELOXICAM 7.5 MG TAB PO SCH (07:48)
[2019-05-24] MEDS: CHOLECALCIFEROL 1,000 UNIT TAB PO SCH (07:48)
[2019-05-24] MEDS: MULTIVITAMINS, THERA 1 EACH TAB PO SCH (07:49)
[2019-05-24] MEDS: ASPIRIN 81 MG PO SCH (07:49)
[2019-05-24] MEDS: SENNOSIDES-DOCUSATE SODIUM 1 EACH TAB PO PRN (07:54)
[2019-05-24 08:15] VITALS: BP 115/68; PULSE 85; RESP 18; TEMP 98
--- NOTE | 2019-05-24 10:58 | P.DS ---
Providers Date of admission: 05/22/19 13:16 Expected date of discharge: 05/24/19 Attending physician: Delia Mcneil Consults: 05/21/19 12:35 Consult Physician Routine Consulting Provider: Alex Hatch Consult Reason/Comments: Syncope Do you want consulting provider notified?: Yes 05/21/19 15:09 Consult Physician Routine Consulting Provider: Hudson Cabrera Consult Reason/Comments: right knee swelling, redness and recent RTKA Do you want consulting provider notified?: Yes 05/22/19 15:19 Consult Physician Routine Consulting Provider: Naina Deleon Consult Reason/Comments: CTA result Do you want consulting provider notified?: Yes Primary care physician: Delia Mcneil - Discharge Diagnosis(es) (1) Postoperative bleeding from incision Current Visit: Yes Status: Acute (2) Syncope and collapse Current Visit: Yes Status: Acute (3) Status post total right knee replacement Current Visit: No Status: Acute Hospital Course: The patient is a 88-year-old male who is status post right total knee arthroplasty by Dr. Hudson Cabrera on 05/19/2019. The patient was discharged home on 05/20/2019 and was doing well. However the patient "passed out" at home and an ambulance was called. He was out at least 8-10 minutes and did have some bradycardia. The patient states that his pain was doing well until he noticed increasing pain and swelling to the knee. The patient states that he has been taking one [place] every 4 hours for the pain. He denies fever, chills, rigors, shortness breath, chest pain, and abdominal pain. Today he states that his pain is minimal. His drainage is significantly improved. He has no new complaints or concerns today. Vital signs are stable. The patient is discharged to home today in good condition. He is to continue with ambulation. He is instructed to not be too aggressive with range of motion of the knee at this time. He is to follow-up as previously scheduled with Dr. Hudson Cabrera. Patient Condition at Discharge: Fair Plan - Discharge Summary Discharge Rx Participant: No New Discharge Prescriptions: New Aspirin [Adult Low Dose Aspirin EC] 81 mg PO DAILY #1 tablet.dr Arredondo Action Terazosin [Hytrin] 5 mg PO HS Omeprazole [PriLOSEC] 20 mg PO BID Multivitamins, Thera [Multivitamin (formulary)] 1 each PO DAILY Cholecalciferol [Vitamin D3 (25 Mcg = 1000 Iu)] 5,000 unit PO DAILY Aspirin 325 mg PO BID #60 tab Celecoxib [CeleBREX] 200 mg PO BID HYDROcodone/APAP 5-325MG [[place] 5] 1 - 2 tab PO Q4-6H PRN PRN Reason: Pain Sennosides-Docusate Sodium [Senokot-S] 2 tab PO DAILY PRN PRN Reason: Constipation Discharge Medication List Omeprazole [PriLOSEC] 20 mg PO BID 10/07/14 [History] Terazosin [Hytrin] 5 mg PO HS 10/07/14 [History] Multivitamins, Thera [Multivitamin (formulary)] 1 each PO DAILY 12/06/14 [History] Cholecalciferol [Vitamin D3 (25 Mcg = 1000 Iu)] 5,000 unit PO DAILY 05/15/19 [History] Aspirin 325 mg PO BID #60 tab 05/19/19 [Rx] Celecoxib [CeleBREX] 200 mg PO BID 05/21/19 [History] HYDROcodone/APAP 5-325MG [[place] 5] 1 - 2 tab PO Q4-6H PRN 05/21/19 [History] Sennosides-Docusate Sodium [Senokot-S] 2 tab PO DAILY PRN 05/21/19 [History] Aspirin [Adult Low Dose Aspirin EC] 81 mg PO DAILY #1 tablet. 05/23/19 [Rx] Follow up Appointment(s)/Referral(s): Benjamin Lao MD [STAFF PHYSICIAN] - 4 Weeks [facility], [NON-STAFF] - Delia Mcneil MD [Primary Care Provider] - 1-2 days Hudson Cabrera DO [Doctor of Osteopathic Medicine] - 1 Week Activity/Diet/Wound Care/Special Instructions: Home Physical therapy for ambulation only - No ROM Decrease daily aspirin to 81 mg daily. Discontinue the 325mg dose. Continue previous pain medication. Follow-up with Dr. Hudson Cabrera as previously scheduled for postop evaluation. Discharge Disposition: HOME WITH HOME HEALTH SERVICES
--- NOTE | 2019-05-24 14:40 | P.PN ---
Subjective Progress Note Date: 05/24/19 This is a 88-year-old male who had a right total knee arthroplasty pleated 2 days ago. He also has a history of GERD, BPH and osteoarthritis. Patient presents to the emergency room after a syncopal episode. Patient had been taking his [place] 5 mg 1-2 tablets every 4-6 hours. He got up this morning to eat breakfast. He was in the kitchen and went from the fridge to the table. He sat down at the table. And he passed out. He may passed out for about 8-10 minutes. The called EMS. ER report that there was some bradycardia. He was unresponsive but did maintain a pulse and blood pressure. Patient did have loss of bladder control when he passed out. When he came to the hospital he was alert and orientated 4. Patient denies hitting his head. He also has the pain pump that is given after surgery still present on his leg. Per paramedics pupils were pinpoint upon their evaluation. Patient has increased swelling and on that right knee. He is starting to have some redness and erythema noted above the knee and just below the knee. He denies any fevers chills or sweats. Denies any chest pain or shortness of breath. Denies any nausea or vomiting. Didn't is no bowel movement yet. He is passing gas. Troponin is negative. Computed tomography scan of the brain showed no acute changes. Chest x-ray chronic changes, cardiomegaly and a small right pleural effusion. EKG was sinus rhythm with PVCs heart rate is 66 and a right bundle branch block. Venous Doppler has been ordered for the right leg to rule out DVT. Patient was started on Ancef for possible cellulitis of that right leg. Cardiology has been consulted in regards to the syncopal episode. And also consult placed for orthopedics. Patient has never had a syncopal episode in the past. On 05/22/2019 patient is resting comfortably in bed. Patient is alert and oriented 3. No further episodes of syncope. Carotid Doppler was completed showing 30% stenosis bilaterally. 2-D echo in progress. Cardiology services have been consulted. Per orthopedic services patient having significant bleeding at surgical site Damian wrap and dressing applied per surgical services. Hemoglobin remained stable at 12.4. Aspirin has been changed to 81 mg daily. Patient having elevated d-dimer 1.40. Will order CTA of the chest to rule out PE STAT. Venous Doppler negative for DVT. At this time patient denies chest pain or shortness breath. Patient denies nausea vomiting or diarrhea. Patient denies any urinary burning or frequency. UA was negative for any signs of infection. Patient remains on Ancef for mild cellulitis to right leg On 05/24/2019 patient was seen and examined on the medical floor is alert and oriented 3 in no apparent distress he has been ambulating without difficulty there is no dizziness or lightheadedness no new episodes of syncope or presyncope no chest pain or shortness of breath no cough no nausea or vomiting no abdominal pain no diarrhea no burning with urination no frequency or urgency and no hematuria Objective - Vital Signs Vital signs: Vital Signs Temp 98.0 F 05/24/19 07:00 Pulse 85 05/24/19 07:00 Resp 18 05/24/19 07:00 BP 115/68 05/24/19 07:00 Pulse Ox 94 L 05/24/19 07:00 Intake & Output 05/23/19 05/24/19 05/24/19 18:59 06:59 18:59 Other: # Voids 2 1 - Exam Patient is alert and oriented 3 in no apparent distress Head normocephalic and atraumatic Neck supple no JVD no goiter Lungs clear to auscultation bilaterally no wheezing or crackles Heart regular rate and rhythm S1-S2, no rub or gallop Abdomen is soft nontender nondistended positive bowel sounds no hepatosplenomegaly Extremities the right knee is swollen significant bruising noted. There is some mild erythema noted above the knee and just below the knee. It is warm to touch. Dressing is clean dry and intact Neuro no gross focal neurological deficit - Labs CBC & Chem 7: 05/24/19 05:38 05/24/19 05:38 Labs: Abnormal Lab Results - Last 24 Hours (Table) 05/24/19 05/24/19 Range/Units 05:38 05:38 RBC 3.31 L (4.30-5.90) m/uL Hgb 11.7 L (13.0-17.5) gm/dL Hct 35.3 L (39.0-53.0) % MCV 106.7 H (80.0-100.0) fL MCH 35.4 H (25.0-35.0) pg Calcium 8.1 L (8.4-10.2) mg/dL Total Protein 5.4 L (6.3-8.2) g/dL Albumin 2.7 L (3.5-5.0) g/dL Microbiology - Last 24 Hours (Table) 05/21/19 15:48 Blood Culture - Preliminary Blood No Growth after 48 hours Assessment and Plan Plan: 1. Syncopal episode: EKG sinus rhythm with PVCs and right bundle branch block heart rate of 66. Continue with telemetry monitoring. Troponin negative. Co mputed tomography scan of the brain showing no acute changes. Carotid Doppler completed findings suggest 30% stenosis in both internal carotid arteries 2. Elevated d-dimer. Patient having bleeding at surgical site dressing applied per orthopedic services will order CTA stat to rule out PE. Venous Doppler completed showing negative for DVT of right lower extremity. Moderate-sized popliteal cyst got present at the end of the study. 3. Right total knee arthroplasty: Surgery completed on 05/19/[address] Cabrera. 4. Possible cellulitis of the right leg. Start Ancef 1 g every 8 hours. Check blood culture 5. History of BPH continue the Cardura 6. GERD continue Protonix 7. Postop bleeding right knee. Orthopedic services are following dressing reapplied hemoglobin stable 12.4. Aspirin decreased per orthopedic services GI prophylaxis Protonix and DVT prophylaxis aspirin UA negative for any signs of infection CT of the chest ordered to rule out PE due to elevated d-dimer 2D echo ordered Cardiology consult placed, input reviewed Patient was cleared by cardiology and orthopedic surgery for discharge today He will be discharged home follow-up in the office in 1-2 weeks
== END 2019-05-24 14:34 | disposition home health service (06) | DRG 315 ==
LOC: EC 10:38 → 4SSUR 12:35 → OBSVTOIN 05-22 13:16
PROVIDERS: ADMIT Internal Medicine; ATTEND Internal Medicine
DX: I95.9 Hypotension, unspecified (principal); L03.115 Cellulitis of right lower limb; L76.22 Postprocedural hemorrhage of skin and subcutaneous tissue following other procedure; I11.9 Hypertensive heart disease without heart failure; G89.29 Other chronic pain; H91.8X3 Other specified hearing loss, bilateral; I45.10 Unspecified right bundle-branch block; I49.1 Atrial premature depolarization; I65.23 Occlusion and stenosis of bilateral carotid arteries; K21.9 Gastro-esophageal reflux disease without esophagitis; K44.9 Diaphragmatic hernia without obstruction or gangrene; R32 Unspecified urinary incontinence; R59.9 Enlarged lymph nodes, unspecified; R79.89 Other specified abnormal findings of blood chemistry; M15.9 Polyosteoarthritis, unspecified; N40.1 Benign prostatic hyperplasia with lower urinary tract symptoms; R33.8 Other retention of urine; I49.3 Ventricular premature depolarization; M71.21 Synovial cyst of popliteal space [Baker], right knee; Z79.1 Long term (current) use of non-steroidal anti-inflammatories (NSAID); Z79.82 Long term (current) use of aspirin; Z79.899 Other long term (current) drug therapy; Z96.651 Presence of right artificial knee joint; Z98.42 Cataract extraction status, left eye; Z98.41 Cataract extraction status, right eye; Z96.1 Presence of intraocular lens; Z87.01 Personal history of pneumonia (recurrent); Z82.49 Family history of ischemic heart disease and other diseases of the circulatory system; Z82.3 Family history of stroke; Y83.8 Other surgical procedures as the cause of abnormal reaction of the patient, or of later complication, without mention of misadventure at the time of the procedure
CPT/HCPCS: 36415; 70450; 71046; 71275; 80053; 81003; 82550; 83735; 84484; 85025; 85379; 85610; 85730; 87040; 93005; 93306; 93880; 94760; 96360; 96361; 99291

== ENCOUNTER → 2019-09-03 | Outpatient (CLI) | payer MEDICARE ==
--- NOTE | 2019-09-03 17:14 | MR ---
EXAMINATION TYPE: MR lumbar spine wo con DATE OF EXAM: 09/03/2019 COMPARISON: None HISTORY: 88-year-old male with back pain that radiates into buttocks TECHNIQUE: Multiplanar, multisequence images of the lumbar spine were acquired. FINDINGS: Degenerated levoconvex scoliosis. Conus medullaris is normal. Heterogeneous marrow signal without suspicious bone marrow placement. Sclerotic Modic type III endpla te changes present at multiple levels along with small Schmorl's nodes. T12 vertebral compression collapse with prior vertebroplasty change and mild retropulsion into the sp inal canal. Grade 1 retrolistheses at L1-L2 and L2-L3. Grade 2 anterolisthesis at L4-L5. Ligamentum flavum thickening and hypertrophic facet arthropathy throughout as well as moderate to sev ere degenerative disc disease throughout. At T11-T12, mild spinal canal narrowing secondary to retropulsion into the ventral spinal canal. Mild bilateral neuroforaminal stenosis. At T12-L1, mild canal narrowing secondary to retropulsion into the ventral spinal canal. Moderate rig ht and mild to moderate left neuroforaminal stenosis. At L1-L2, hypertrophic facet arthropathy with ligamentum flavum thickening, bulging disc, and grade 1 retrolisthesis. Minimal narrowing of the spinal canal with moderate bilateral neuroforaminal stenosi s. At L2-L3, similar changes are present with mild overall narrowing of the spinal canal. Moderate right neuroforaminal stenosis. At L3-L4, hypertrophic facet arthropathy with ligamentum flavum thickening and diffuse disc bulge. Mi ld to moderate narrowing of the spinal canal with moderate right and [id number] left neuroforam inal stenosis. At L4-L5, hypertrophic facet arthropathy with ligamentum flavum thickening, posterior disc bulge, and grade 2 anterolisthesis. There is severe focal spinal canal stenosis along with moderate to severe b ilateral neuroforaminal stenosis. At L5-S1, diffuse disc bulge and facet arthropathy. Mild right and moderate left neural foraminal dennis nosis. However, a left lateral disc osteophyte complex may impinge the extraforaminal left L5 nerve r oot. No prevertebral or paravertebral soft tissue abnormality seen. IMPRESSION: 1. Advanced degenerated levoconvex scoliosis characterize. Degenerative disc disease, ligamentum flav um thickening, and hypertrophic facet arthropathy.. 2. Prior vertebral compression collapse of T12 with mild retropulsion into the ventral spinal canal c ausing mild spinal canal stenosis. 3. Grade 1 retrolisthesis from L1 through L3 levels and a degenerative grade 2 anterolisthesis at L4- L5. 4. Severe focal spinal canal stenosis at L4-L5 with moderate to severe bilateral neuroforaminal steno sis. 5. Additional levels of mild spinal canal narrowing. Also, variable mild and moderate neuroforaminal stenoses as outlined above. A left lateral disc osteophyte complex at L5-S1 may impinge the extrafora delfina left L5 nerve root.
== END | disposition home or self-care (01) ==
LOC: RADMRIMAIN 13:47
PROVIDERS: ATTEND Internal Medicine
DX: M48.061 Spinal stenosis, lumbar region without neurogenic claudication (principal); M43.16 Spondylolisthesis, lumbar region; M51.36 Other intervertebral disc degeneration, lumbar region; M47.816 Spondylosis without myelopathy or radiculopathy, lumbar region; M41.56 Other secondary scoliosis, lumbar region; M53.86 Other specified dorsopathies, lumbar region; M25.78 Osteophyte, vertebrae; G95.20 Unspecified cord compression
CPT/HCPCS: 72148

== ENCOUNTER → 2019-09-18 | Outpatient (CLI) | payer MEDICARE ==
--- NOTE | 2019-09-18 15:34 | FL ---
EXAMINATION TYPE: FL barium swallow DATE OF EXAM: 09/18/2019 COMPARISON: None HISTORY: Dysphasia TECHNIQUE: A single contrast UGI study is performed. FINDINGS: Multiple tertiary contractions are evident. Secondary contractions are evident. There is hesitancy of contrast passing through the distal esophagus. A paraesophageal hernia may be p resent displacing the esophagus. No intraluminal defect is evident. Fluoroscopy time: 1 minute 55 seconds. Images: 104. IMPRESSIONS: 1. 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
== END | disposition home or self-care (01) ==
LOC: RADUSWWP 10:04
PROVIDERS: ATTEND Otolaryngology
DX: K22.8 Other specified diseases of esophagus (principal); K44.9 Diaphragmatic hernia without obstruction or gangrene
CPT/HCPCS: 74220

== ENCOUNTER → 2020-05-12 | Outpatient (CLI) | payer MEDICARE ==
--- NOTE | 2020-05-12 09:47 | XR ---
EXAMINATION TYPE: XR chest 2V DATE OF EXAM: 05/12/2020 COMPARISON: 05/21/2019 HISTORY: Shortness of breath TECHNIQUE: Frontal and lateral views of the chest are obtained. FINDINGS: Scattered senescent parenchymal changes noted. Hyperinflation compatible with COPD. No evidence for infiltrate. No evidence for atelectasis. Heart size is stable. Mediastinal structures are stable and grossly unremarkable. No evidence for hilar prominence. Degenerative changes dorsal spine. IMPRESSION: 1. No evidence for acute pulmonary disease.
== END | disposition home or self-care (01) ==
LOC: RADXRMAIN 09:19
PROVIDERS: ATTEND Internal Medicine
DX: R05 Cough (principal)
CPT/HCPCS: 71046

== ENCOUNTER 2020-07-19 13:13 | Observation (INO) | payer MEDICARE ==
[2020-07-19 13:27] LABS: Glucose,Whole Blood 83 mg/dL (75-99)
--- NOTE | 2020-07-19 13:29 | ED ---
General Adult HPI - General Chief complaint: Neuro Symptoms/Deficit Stated complaint: Stroke Symptoms Time Seen by Provider: 07/19/20 13:17 Source: patient, EMS, RN notes reviewed Mode of arrival: ambulatory Limitations: no limitations - History of Present Illness Initial comments: Patient is a pleasant 89-year-old male presenting to the emergency department with concerns for stroke. Onset of symptoms was between 12:30 and 1240. Patient had sudden onset of slurred speech and problems finding words. Patient did have tingling and weakness of his right side and right face. Symptoms improved in route and then worsened upon arrival to the emergency Department. Symptoms have again and improved. Patient feels like he can speak normally at this time. No history of similar symptoms previously. No headache. - Related Data Home Medications Medication Instructions Recorded Confirmed Omeprazole [PriLOSEC] 20 mg PO BID 10/07/14 05/21/19 Terazosin [Hytrin] 5 mg PO HS 10/07/14 05/21/19 Multivitamins, Thera [Multivitamin 1 each PO DAILY 12/06/14 05/21/19 (formulary)] Cholecalciferol [Vitamin D3 (25 5,000 unit PO DAILY 05/15/19 05/21/19 Mcg = 1000 Iu)] Celecoxib [CeleBREX] 200 mg PO BID 05/21/19 05/21/19 HYDROcodone/APAP 5-325MG [[place] 5] 1 - 2 tab PO Q4-6H PRN 05/21/19 05/21/19 Sennosides-Docusate Sodium 2 tab PO DAILY PRN 05/21/19 05/21/19 [Senokot-S] Previous Rx's Medication Instructions Recorded Aspirin 325 mg PO BID #60 tab 05/19/19 Aspirin [Adult Low Dose Aspirin EC] 81 mg PO DAILY #1 tablet. 05/23/19 Allergies Allergy/AdvReac Type Severity Reaction Status Date / Time No Known Allergies Allergy Verified 07/19/20 14:06 Review of Systems ROS Statement: Those systems with pertinent positive or pertinent negative responses have been documented in the HPI. ROS Other: All systems not noted in ROS Statement are negative. Constitutional: Denies: fever Eyes: Denies: eye pain, vision change ENT: Denies: ear pain Respiratory: Denies: cough Cardiovascular: Denies: chest pain Endocrine: Denies: fatigue Gastrointestinal: Denies: abdominal pain Genitourinary: Denies: dysuria Musculoskeletal: Denies: back pain Skin: Denies: rash Neurological: Reports: as per HPI, weakness, paresthesias. Denies: headache Past Medical History Past Medical History: GERD/Reflux, Hearing Disorder / Deafness, Osteoarthritis (OA), Pneumonia, Prostate Disorder, Syncope Additional Past Medical History / Comment(s): BPH, urinary retention, arthritis in multiple joints, chronic back pain-"collapsed vertebrae", [place] bilaterally- aides are in for repair. History of Any Multi-Drug Resistant Organisms: None Reported Past Surgical History: Joint Replacement, Orthopedic Surgery Additional Past Surgical History / Comment(s): R knee arthroscopy, 05/19/19 total R knee arthroplasty, kyphoplasty, deviated septum surgery, colonoscopies, bilateral cataract removals/lens implants. Past Anesthesia/Blood Transfusion Reactions: No Reported Reaction Past Psychological History: No Psychological Hx Reported Past Alcohol Use History: Occasional Past Drug Use History: None Reported - Past Family History Mother Family Medical History: CVA/TIA Father Family Medical History: Myocardial Infarction ([place]) Additional Family Medical History / Comment(s): AT AGE 49 General Exam Limitations: no limitations General appearance: alert, in no apparent distress Head exam: Present: atraumatic, normocephalic Eye exam: Present: normal appearance, PERRL, EOMI ENT exam: Present: normal oropharynx Neck exam: Present: normal inspection Respiratory exam: Present: normal lung sounds bilaterally Cardiovascular Exam: Present: regular rate, normal rhythm GI/Abdominal exam: Present: soft. Absent: tenderness Extremities exam: Present: normal inspection Neurological exam: Present: alert, oriented X3, CN II-XII intact (Except for minimal right facial droop) Expanded Neurological exam: Present: protecting the airway Patient oriented to: Present: person, place, time Speech: Present: fluid speech Cranial nerves: EOM's Intact: Normal, Facial Sensation: Normal Sensory exam: Upper Extremity Light Touch: Normal, Lower Extremity Light Touch: Normal Motor strength exam: RUE: 5, LUE: 5, RLE: 5, LLE: 5 Eye Response: (4) open spontaneously Motor Response: (6) obeys commands Verbal Response: (5) oriented Psychiatric exam: Present: normal affect, normal mood Skin exam: Present: normal color Course Vital Signs 07/19/20 07/19/20 07/19/20 13:14 13:15 13:30 Temperature 97.9 F Pulse Rate 72 67 65 Respiratory 18 18 18 Rate Blood Pressure 186/91 186/91 152/89 O2 Sat by Pulse 97 98 97 Oximetry 07/19/20 07/19/20 07/19/20 13:45 13:53 14:00 Temperature 97.9 F Pulse Rate 68 68 70 Respiratory 18 18 18 Rate Blood Pressure 152/80 151/90 163/108 O2 Sat by Pulse 98 98 98 Oximetry - Reevaluation(s) Reevaluation #1: 07/19/20 13:32 NIH initial by nursing staff was 3. Repeat was 1. 07/19/20 13:40 Case was discussed in detail with neurology, Dr. Gould who agrees patient is not a TPA candidate secondary to low NIH and age EKG Findings - EKG Comments: EKG Findings:: Sinus bradycardia with a rate of 59. For screening AV block LA of 210. QRS 148. QT 422. QTC 417. Left axis. Right bundle branch block. LVH criteria. No acute ST change. Medical Decision Making - Medical Decision Making Patient reevaluated and symptom-free. Patient and family updated on results and plan. Dr. Mcneil has been paged for admission of his patient. - Lab Data Result diagrams: 07/19/20 13:28 07/19/20 13:28 Lab Results 07/19/20 07/19/20 07/19/20 Range/Units 13:21 13:28 13:28 WBC 7.0 (3.8-10.6) k/uL RBC 4.62 (4.30-5.90) m/uL Hgb 16.6 (13.0-17.5) gm/dL Hct 47.6 (39.0-53.0) % MCV 103.1 H (80.0-100.0) fL MCH 36.0 H (25.0-35.0) pg MCHC 34.9 (31.0-37.0) g/dL RDW 12.4 (11.5-15.5) % Plt Count 192 (150-450) k/uL MPV 8.4 Macrocytosis Slight PT 10.8 (9.0-12.0) sec INR 1.0 (<1.2) APTT 25.3 (22.0-30.0) sec Sodium (137-145) mmol/L Potassium (3.5-5.1) mmol/L Chloride (98-107) mmol/L Carbon Dioxide (22-30) mmol/L Anion Gap mmol/L BUN (9-20) mg/dL Creatinine (0.66-1.25) mg/dL Est GFR (CKD-EPI)AfAm (>60 ml/min/1.73 sqM) Est GFR (CKD-EPI)NonAf (>60 ml/min/1.73 sqM) Glucose (74-99) mg/dL POC Glucose (mg/dL) 83 (75-99) mg/dL POC Glu Spanish Language Lecturer ID Carlos, Harika Calcium (8.4-10.2) mg/dL Total Bilirubin (0.2-1.3) mg/dL AST (17-59) U/L ALT (4-49) U/L Alkaline Phosphatase (38-126) U/L Total Protein (6.3-8.2) g/dL Albumin (3.5-5.0) g/dL 07/19/20 Range/Units 13:28 WBC (3.8-10.6) k/uL RBC (4.30-5.90) m/uL Hgb (13.0-17.5) gm/dL Hct (39.0-53.0) % MCV (80.0-100.0) fL MCH (25.0-35.0) pg MCHC (31.0-37.0) g/dL RDW (11.5-15.5) % Plt Count (150-450) k/uL MPV Macrocytosis PT (9.0-12.0) sec INR (<1.2) APTT (22.0-30.0) sec Sodium 140 (137-145) mmol/L Potassium 4.9 (3.5-5.1) mmol/L Chloride 107 (98-107) mmol/L Carbon Dioxide 24 (22-30) mmol/L Anion Gap 9 mmol/L BUN 22 H (9-20) mg/dL Creatinine 0.89 (0.66-1.25) mg/dL Est GFR (CKD-EPI)AfAm 89 (>60 ml/min/1.73 sqM) Est GFR (CKD-EPI)NonAf 77 (>60 ml/min/1.73 sqM) Glucose 70 L (74-99) mg/dL POC Glucose (mg/dL) (75-99) mg/dL POC Glu Spanish Language Lecturer ID Calcium 9.3 (8.4-10.2) mg/dL Total Bilirubin 0.7 (0.2-1.3) mg/dL AST 37 (17-59) U/L ALT 15 (4-49) U/L Alkaline Phosphatase 70 (38-126) U/L Total Protein 7.7 (6.3-8.2) g/dL Albumin 4.3 (3.5-5.0) g/dL - Radiology Data Radiology results: report reviewed (Computed tomography scan of the brain shows atrophy and chronic changes.) Disposition Clinical Impression: Transient cerebral ischemia Disposition: ADMITTED IP TO THIS HOSP Is patient prescribed a controlled substance at d/c from ED?: No Referrals: Delia Mcneil MD [Primary Care Provider] - 1-2 days Decision Time: 14:09
[2020-07-19 13:37] LABS: HCT 47.6 % (39.0-53.0); HGB 16.6 gm/dL (13.0-17.5); MCHC 34.9 g/dL (31.0-37.0); MCV 103.1 fL (80.0-100.0); Macrocytosis Slight; Mean Platelet Volume 8.4; Platelet Count 192 k/uL (150-450); RBC 4.62 m/uL (4.30-5.90); RDW 12.4 % (11.5-15.5)
--- NOTE | 2020-07-19 13:46 | CT ---
EXAMINATION TYPE: CT brain wo con for TPA DATE OF EXAM: 07/19/2020 HISTORY: Neuro deficit. Acute onset neuro deficit. Right facial droop. Slurred speech. CT DLP: 1090.4 mGycm. Automated Exposure Control for Dose Reduction was Utilized. TECHNIQUE: CT scan of the head is performed without contrast. COMPARISON: CT brain May 21, 2019. FINDINGS: There is no acute intracranial hemorrhage or midline shift identified. There is moderate diffuse ventricular and sulcal prominence consistent with diffuse age-related cerebral atrophy. Ther e is moderate low-attenuation in the periventricular white matter consistent with chronic small vesse l ischemic change. Persistent mucosal thickening and patchy opacification in the right maxillary sinu s3. Vascular calcification distal internal carotid arteries bilaterally is redemonstrated. IMPRESSION: No acute intracranial hemorrhage or midline shift. There is moderate diffuse cerebral a trophy and chronic small vessel ischemic change redemonstrated. No significant change from prior CT.
[2020-07-19 13:47] LABS: Albumin 4.3 g/dL (3.5-5.0); Calcium 9.3 mg/dL (8.4-10.2); Total Bilirubin 0.7 mg/dL (0.2-1.3); Total Protein 7.7 g/dL (6.3-8.2)
[2020-07-19 13:50] LABS: Potassium 4.9 mmol/L (3.5-5.1)
[2020-07-19 14:02] LABS: Partial Thromboplastin Time 25.3 sec (22.0-30.0); Prothrombin Time 10.8 sec (9.0-12.0)
[2020-07-19 14:09] LABS: Eosinophils # (M) 0.07 k/uL (0-0.7); Lymphocytes # (M) 1.68 k/uL (1.0-4.8); Monocytes # (M) 1.33 k/uL (0-1.0); Neutrophils # (M) 3.92 k/uL (1.3-7.7); Neutrophils % (M) 56 %; Nucleated Red Blood Cells 0 /100 WBC (0-0); Total Cells Counted 100
[2020-07-19] MEDS ORDERED: ASPIRIN 325 MG TAB PO STA (14:10)
--- NOTE | 2020-07-19 14:10 | XR ---
EXAMINATION TYPE: XR chest 2V DATE OF EXAM: 07/19/2020 COMPARISON: 05/12/2020 HISTORY: Shortness of breath TECHNIQUE: Frontal and lateral views of the chest are obtained. FINDINGS: Scattered senescent parenchymal changes noted. Hyperinflation compatible with COPD. No evidence for infiltrate. No evidence for atelectasis. Heart size is stable. Mediastinal structures are stable and grossly unremarkable. Fixed hiatal hernia noted. No evidence for hilar prominence. Degenerative changes dorsal spine. IMPRESSION: 1. No evidence for acute pulmonary disease.
[2020-07-19] MEDS ORDERED: TICAGRELOR 90 MG TAB PO STA (14:13)
--- NOTE | 2020-07-19 14:46 | CT ---
EXAMINATION TYPE: CT angio head neck DATE OF EXAM: 07/19/2020 COMPARISON: None HISTORY: Slurred speech, Rt facial droop, expressive aphasia CT DLP: 496 mGycm CONTRAST: Performed with IV Contrast, patient injected with 65 mL of Isovue 370. Combination Contrast CTA cervical carotids and [place] CTA cervical carotids with 3-D recons truction Contrast CTA of the cervical carotids was performed 3-D reconstruction imaging obtained at a separate workstation. Right carotid system: Mild plaque is seen of the right common carotid artery. There is mild plaque a lso noted at the carotid bulb and proximal ICA. No significant diameter reduction. ECA is patent. Right vertebral artery appears unremarkable. Left carotid system: Mild plaque is seen of the left common carotid artery. There is mild plaque als o noted at the carotid bulb and proximal ICA. No hemodynamically significant stenosis seen however t here is streak artifact coursing through the left internal carotid artery and left external carotid a rteries. ECA is patent. Left vertebral artery appears unremarkable. IMPRESSION: 1. No significant diameter reduction to account for the patient's symptoms. CTA [place] with 3-D reconstruction Contrast CTA of the [place] was performed 3-D reconstruction imaging obtained at a separate workstation. 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 Correlate clinically. The left MCA as well as the VIVIEN, RE RECORDING MIXER vertebrobasilar system are patent. I do not see evidence for siz able aneurysm or vascular malformation. Please note MRI provides greater sensitivity and specificity . Visualized brain appears grossly unremarkable. IMPRESSION: 1. 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 Correlate clinicall y.
[2020-07-19] MEDS: SODIUM CHLORIDE 0.9% 1,000 ML IV SCH (15:02)
[2020-07-19] MEDS ORDERED: ATORVASTATIN 80 MG TAB PO STA (17:08)
--- NOTE | 2020-07-19 17:30 | P.CNNES ---
History of Present Illness Consult date: 07/19/20 Requesting physician: Alo Dutta Reason for Consult: Transient slurred speech and finding words History of Present Illness: This is a 89-year-old gentleman with medical history of Rheumatoid arthritis, mild hard of hearing that presented to the emergency department on the 07/19/2020 for sudden onset of slurred speech and word finding difficulties. He is accompanied with his . Patient onset was between 12:30 to 12:40 PM today. He stated that he noticed that he was feeling dizzy and as if the room was spinning then noticed that his right hand was the tingling numb in the noticed that she could not get his words out. 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 noticed that the patient had the right lower facial droop. He denied noticing any numbness over the right side of the face or leg but he notified the ED team that he had the numbness over the right face. Symptoms lasted for about 45 minutes then resolved and he said that he happen again and lasted only for 5 minutes and has not happened since then. He denies any history of stroke or TIA in the past. He denies being on antiplatelet. He denies tobacco use but socially drinks alcohol. His mother had stroke and her 30s. As a result a code stroke was activated. Initial vital signs: Blood pressure of 186/91, heart rate of 72, respiratory of 18, temperature of 97.9 Fahrenheit oral and pulse ox of 97% at room air. Initial POC glucose is 83 which is within the normal limits. While the serum glucose was 70 which is mildly low. Workup consisted of CT of the head which is reported as no acute intracranial hemorrhage or midline shift. There is moderate diffuse cerebral atrophy and chronic small vessel ischemic changes redemonstrated. No significant change from prior CT. CT angiography of the head and neck reported as no significant diameter reduction to account for the patient's symptoms. There is no broad termination of the right middle cerebral artery at its origin. Correlate clinically. No tpa since symptoms resolved. Stroke/Interventional Attending (Dr. Escamilla) was contacted and recommend for loading dose of Brilinta 180mg once and recommend for patient to follow-up with him upon discharge. Per ED note Dr. Escamilla was provided with patient's home number. Review of Systems Review of system: The 12 point system was reviewed and apparent positive and negative per HPI. Past Medical History Past Medical History: GERD/Reflux, Hearing Disorder / Deafness, Osteoarthritis (OA), Pneumonia, Prostate Disorder, Syncope Additional Past Medical History / Comment(s): BPH, urinary retention, arthritis in multiple joints, chronic back pain-"collapsed vertebrae", [place] bilaterally-aid es are in for repair. History of Any Multi-Drug Resistant Organisms: None Reported Past Surgical History: Joint Replacement, Orthopedic Surgery Additional Past Surgical History / Comment(s): R knee arthroscopy, 05/19/19 total R knee arthroplasty, kyphoplasty, deviated septum surgery, colonoscopies, bilateral cataract removals/lens implants. Past Anesthesia/Blood Transfusion Reactions: No Reported Reaction Past Psychological History: No Psychological Hx Reported Past Alcohol Use History: Occasional Past Drug Use History: None Reported - Past Family History Mother Family Medical History: CVA/TIA Father Family Medical History: Myocardial Infarction ([place]) Additional Family Medical History / Comment(s): AT AGE 49 Medications and Allergies Home Medications Medication Instructions Recorded Confirmed Type Omeprazole [PriLOSEC] 20 mg PO AC-BID 10/07/14 07/19/20 History Multivitamins, Thera [Multivitamin 1 tab PO DAILY 12/06/14 07/19/20 History (formulary)] Cholecalciferol [Vitamin D3 (25 50 mcg PO DAILY 05/15/19 07/19/20 History Mcg = 1000 Iu)] Celecoxib [CeleBREX] 200 mg PO BID PRN 05/21/19 07/19/20 History HYDROcodone/APAP 5-325MG [[place] 5] 0.5 tab PO DAILY PRN 05/21/19 07/19/20 History Allergies Allergy/AdvReac Type Severity Reaction Status Date / Time No Known Allergies Allergy Verified 07/19/20 14:06 Physical Examination - Vital Signs Vital Signs: Vital Signs Temp Pulse Resp BP Pulse Ox 07/19/20 15:13 97.8 F 58 L 18 139/85 98 07/19/20 15:00 58 L 18 139/85 98 07/19/20 14:00 97.9 F 60 18 141/84 97 07/19/20 13:53 68 18 151/90 98 07/19/20 13:45 68 18 152/80 98 07/19/20 13:30 65 18 152/89 97 07/19/20 13:15 67 18 186/91 98 07/19/20 13:14 97.9 F 72 18 186/ 97 Intake and Output 07/19/20 07/19/20 07/19/20 06:59 14:59 22:59 Other: Weight 70.307 kg GENERAL: The patient is lying in bed and is not in acute distress. CHEST: The heart rate is regular rate rhythm. No murmurs to auscultation. No carotid bruit bilaterally. LUNG: Clear to auscultation bilaterally no wheezing noted throughout. Not labored breathing. ABDOMEN/GI: Bowel sounds present in all 4 quadrants. No tenderness to palpation throughout. MUSCULOSKELETAL: Has significant swan neck deformity of bilateral hand (significant arthritis). NEUROLOGICAL: Higher mental function: The patient is awake, alert, oriented to self, place and time. Patient is following commands. No aphasia and no neglect. Cranial nerves: The pupils are round, equal and reactive to light and accommodation. Visual dutta are full to confrontation throughout. Extraocular movement is intact no nystagmus is noted. Facial sensation is normal to touch throughout. The facial strength is normal throughout. Hearing is normal bilat erally to hand rub. Tongue is midline and moved [id number] without any difficulty. No dysarthria is noted. Shoulder shrug is normal bilaterally. Motor: Gait is deferred. The strength is 5 over 5 throughout. Normal tone and bulk. Cerebellum: Normal finger to nose heel to chin bilaterally. Sensation: Sensation is normal to touch throughout. Reflexes (right/left): 2+ throughout except ankles are 1+ bilaterally. Plantars are downgoing bilaterally. Current NIH STROKE SCALE: 0 Results Other workup consisted of: Troponin is less than 0.012. Coagulation study: PT of 10.8, INR 1.0, PTT of 25.3. - Laboratory Findings CBC and BMP: 07/19/20 13:28 07/19/20 13:28 Abnormal Lab Findings: Abnormal Labs 07/19/20 07/19/20 13:28 13:28 MCV 103.1 H MCH 36.0 H Monocytes # (Manual) 1.33 H BUN 22 H Glucose 70 L Assessment and Plan Assessment: This is a 89-year-old gentleman who presented to the emergency department on the 07/19/2020 for sudden onset of word finding difficulties, slurred speech, right facial droop and right hand numbness, tingling and weakness as well dizziness. Episode lasted for 45 minutes. Transient ischemic attack (with symptoms of slurring speech and word finding difficulty, right facial droop, right hand weakness and numbness/tingling). 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 Per interventional neurology No intervention. Mild Hard of hearing Significant for rheumatoid arthritis Plan: CT of the head which is reported as no acute intracranial hemorrhage or midline shift. There is moderate diffuse cerebral atrophy and chronic small vessel ischemic changes redemonstrated. No significant change from prior CT. CT angiography of the head and neck reported as no significant diameter reduction to account for the patient's symptoms. 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 Correlate clinically. No tpa since symptoms resolved. Stroke/Interventional Attending (Dr. Escamilla) was contacted and recommend for loading dose of Brilinta 180mg once and recommend for patient to follow-up with him upon discharge. Per ED note Dr. Escamilla was provided with patient's home number. Patient was loaded with Brilinta 180mg once as well was given ASA 325mg once in the ED. I started the patient on aspirin 81 mg and Plavix 75 mg daily the patient to be on dual antiplatelets for 21 days and after that and to continue aspirin indefinitely. I started the patient's on Lipitor 80 mg daily with the 80 mg once stat. I ordered MRI of the brain. 2-D echo and lipid panels ordered and is pending. Ordered carotid duplex. Placed the patient on Q4 hours neuro checks. Continue continous Cardiac monitoring. PT, OT and GARBAGE DEPOT WORKER are consulted. Recommend permissive hypertension and only treat if the blood systolic blood pressure is more than 220 and diastolic blood pressures more than 110. Currently he is on 100cc/hour. Please avoid any hypoglycemic episodes and will defer management to the primary team. Patient was notified that if he has any symptoms to verify that nurse immediately. If the patient has any further stroke like to symptoms then I notified the nurse to activate the stroke code. The plan is discussed with the patient, his (Marlene who is at bedside) and patient's nurse. Thank you for the consultation. Watson Townsend MD Neuro-Hospitalist Time with Patient: Greater than 30
--- NOTE | 2020-07-19 19:49 | P.HPIM ---
History of Present Illness H&P Date: 07/19/20 Lorne Velásquez, is an 89-year-old male who presented to [facility] emergency room with a chief complaint of expressive aphasia and weakness and tingling in the right side of his face and his right hand, patient and his were worried about the possibility of stroke, his called EMS and he was brought into emergency room. Patient was evaluated in emergency room vital examination on presentation revealed a temperature of 97.9 pulse 72 respiration 18 blood pressure 186/91 pulse ox 97% on room air. 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 While in the emergency room patient was experiencing difficulty finding words, and numbness and tingling in the right side of his face and his right hand, symptoms improved significantly, then patient had another episode of worsening expressive aphasia and tingling in his right hand lasting 10-15 minutes then s ymptoms resolved completely. At the time of my exam patient is stating that he does not have any symptoms. Past Medical History Past Medical History: GERD/Reflux, Hearing Disorder / Deafness, Osteoarthritis (OA), Pneumonia, Prostate Disorder, Syncope Additional Past Medical History / Comment(s): BPH, urinary retention, arthritis in multiple joints, chronic back pain-"collapsed vertebrae", EKUK bilaterally- aides are in for repair. History of Any Multi-Drug Resistant Organisms: None Reported Past Surgical History: Joint Replacement, Orthopedic Surgery Additional Past Surgical History / Comment(s): R knee arthroscopy, 05/19/19 total R knee arthroplasty, kyphoplasty, deviated septum surgery, colonoscopies, bilateral cataract removals/lens implants. Past Anesthesia/Blood Transfusion Reactions: No Reported Reaction Past Psychological History: No Psychological Hx Reported Additional Psychological History / Comment(s): Pt resides with his spouse. He is currently using a walker to ambulate post total R knee. He cannot drive at this time, spouse can drive. He is to start home PT-thinks thru [facility]. He has a toilet raiser, shower chair. Smoking Status: Never smoker Past Alcohol Use History: Occasional Past Drug Use History: None Reported - Past Family History Mother Family Medical History: CVA/TIA Father Family Medical History: Myocardial Infarction (OR) Additional Family Medical History / Comment(s): AT AGE 49 Medications and Allergies Home Medications Medication Instructions Recorded Confirmed Type Omeprazole [PriLOSEC] 20 mg PO AC-BID 10/07/14 07/19/20 History Multivitamins, Thera [Multivitamin 1 tab PO DAILY 12/06/14 07/19/20 History (formulary)] Cholecalciferol [Vitamin D3 (25 50 mcg PO DAILY 05/15/19 07/19/20 History Mcg = 1000 Iu)] Celecoxib [CeleBREX] 200 mg PO BID PRN 05/21/19 07/19/20 History HYDROcodone/APAP 5-325MG [[place] 5] 0.5 tab PO DAILY PRN 05/21/19 07/19/20 History Allergies Allergy/AdvReac Type Severity Reaction Status Date / Time No Known Allergies Allergy Verified 07/19/20 14:06 Physical Exam Vitals: Vital Signs Temp Pulse Pulse Resp BP BP Pulse Ox 07/19/20 18:13 63 16 176/82 93 L 07/19/20 15:13 97.8 F 58 L 18 139/85 98 07/19/20 15:00 58 L 18 139/85 98 07/19/20 14:00 97.9 F 60 18 141/84 97 07/19/20 13:53 68 18 151/90 98 07/19/20 13:45 68 18 152/80 98 07/19/20 13:30 65 18 152/89 97 07/19/20 13:15 67 18 186/91 98 07/19/20 13:14 97.9 F 72 18 186/91 97 Intake and Output 07/19/20 07/19/20 07/19/20 06:59 14:59 22:59 Other: # Voids 1 Weight 70.307 kg 70.307 kg In general patient is alert and oriented -3 in no distress HEENT head normocephalic and atraumatic Neck is supple no JVD no goiter no lymphadenopathy no carotid bruit Chest examination is clear to auscultation no crackles no wheezing Cardiac exam reveals regular heart sounds S1 and S2 no gallops no murmurs Abdomen is soft nontender no organomegaly with normal bowel sounds Extremity exam reveals no edema no cyanosis or clubbing Neurological examination reveals no gross focal deficits, patient is alert and oriented 3 no aphasia at this time. Cranial nerves II-12 are intact, no sensory deficit to touch stimuli strength is 5 out of 5 in all major muscle groups without any evidence of weakness Reflexes are 2+ symmetrical and plantars are downward bilaterally. Results CBC & Chem 7: 07/19/20 13:28 07/19/20 13: Labs: Abnormal Lab Results - Last 24 Hours (Table) 07/19/20 07/19/20 Range/Units 13:28 13: MCV 103.1 H (80.0-100.0) fL MCH 36.0 H (25.0-35.0) pg Monocytes # (Manual) 1.33 H (0-1.0) k/uL BUN 22 H (9-20) mg/dL Glucose 70 L (74-99) mg/dL Thrombosis Risk Factor Assmnt - Choose All That Apply Other Risk Factors: Yes Each Risk Factor Represents 3 Points: Age 75 years or older Other congenital or acquired thrombophilia - If yes, enter type in comment: Yes Each Risk Factor Represents 5 Points: Stroke (< 1 month) Thrombosis Risk Factor Assessment Total Risk Factor Score: 8 Thrombosis Risk Factor Assessment Level: High Risk Assessment and Plan Plan: 1. Episodes of expressive aphasia with weakness and numbness involving the right side of the face and the right upper extremity, symptoms now resolved, possible transient ischemic attack, patient is admitted to telemetry floor neurology consultation was requested, MRI of the brain was ordered and patient was started on oral Plavix and oral Lipitor 2. Previous history of syncope 3. History of benign prostatic hypertrophy 4. History of osteoarthritis At this time patient is admitted to telemetry floor he will be monitored closely MRI of the brain was ordered Neurology consultation requested input reviewed Will follow
[2020-07-19 21:21] VITALS: TEMP 98.3
[2020-07-20] MEDS: SODIUM CHLORIDE 0.9% 1,000 ML IV SCH (06:33)
[2020-07-20] MEDS ORDERED: PANTOPRAZOLE 40 MG TABLET PO SCH (07:30)
--- NOTE | 2020-07-20 07:52 | ECHOF ---
Referral Reason:Thrombus MEASUREMENTS -------- HEIGHT: 172.7 cm WEIGHT: 70.3 kg BP: RVIDd: 2.8 cm (< 3.3) IVSd: 1.1 cm (0.6 - 1.1) LVIDd: 3.7 cm (3.9 - 5.3) LVPWd: 1.4 cm (0.6 - 1.1) IVSs: 1.4 cm LVIDs: 3.0 cm LVPWs: 1.5 cm LAESV Index (A-L): 37.57 ml/m MV EXCURSION: 14.230 mm (> 18.000) MV EF SLOPE: 43 mm/s (70 - 150) EPSS: 0.8 cm MV E Kristian: 0.51 m/s MV DecT: 220 ms MV A Kristian: 0.71 m/s MV E/A Ratio: 0.71 RAP: 5.00 mmHg RVSP: 27.32 mmHg FINDINGS -------- Sinus rhythm. This was a technically adequate study. The left ventricular size is normal. Overall left ventricular systolic function is low-normal with, an EF between 50 - 55 %. The right ventricle is normal in size. LA is moderately dilated 34-39 ml/m2 The right atrial size is normal. The aortic valve is trileaflet, and appears structurally normal. No aortic stenosis or regurgitation. Mild mitral annular calcification present. Mild mitral regurgitation is present. The tricuspid valve appears structurally normal. Mild tricuspid regurgitation present. Right vent ricular systolic pressure is normal at < 35 mmHg. Trace/mild (physiologic) pulmonic regurgitation. The aortic root size is normal. There is no pericardial effusion. CONCLUSIONS -------- 1. The left ventricular size is normal. 2. Overall left ventricular systolic function is low-normal with, an EF between 50 - 55 %. 3. LA is moderately dilated 34-39 ml/m2 4. The aortic valve is trileaflet, and appears structurally normal. No aortic stenosis or regurgitati on. 5. Mild mitral regurgitation is present. 6. Mild tricuspid regurgitation present. 7. Trace/mild (physiologic) pulmonic regurgitation. 8. There is no pericardial effusion. [employer]PORT SKILLED MAINTENANCE SUPERVISOR: Joanna Holcomb RDCS
[2020-07-20 08:16] VITALS: RESP 16
[2020-07-20 08:38] LABS: Basophils # (A) 0.1 k/uL (0-0.2); Basophils % (A) 1 %; Eosinophils # (A) 0.3 k/uL (0-0.7); Eosinophils % (A) 4 %; HCT 50.4 % (39.0-53.0); HGB 15.7 gm/dL (13.0-17.5); Lymphocytes # (A) 1.2 k/uL (1.0-4.8); Lymphocytes % (A) 20 %; MCH 33.1 pg (25.0-35.0); MCHC 31.2 g/dL (31.0-37.0); Macrocytosis Moderate; Mean Platelet Volume 7.6; Monocytes # (A) 0.5 k/uL (0-1.0); Monocytes % (A) 9 %; Neutrophils # (A) 3.6 k/uL (1.3-7.7); Neutrophils % (A) 62 %; Platelet Count 199 k/uL (150-450); RBC 4.75 m/uL (4.30-5.90); RDW 13.1 % (11.5-15.5); WBC 5.7 k/uL (3.8-10.6)
--- NOTE | 2020-07-20 08:42 | US ---
EXAMINATION TYPE: US carotid duplex BILAT DATE OF EXAM: 07/20/2020 COMPARISON: Carotid ultrasound May 21, 2019. CTA neck from yesterday. CLINICAL HISTORY: STROKE. Acute onset neuro deficit on admission one day earlier. EXAM MEASUREMENTS: RIGHT: Peak Systolic Velocity (PSV) cm/sec ----- Right CCA: 57.8 ----- Right ICA: 90.0 ----- Right ECA: 88.1 ICA/CCA ratio: 1.57 RIGHT: End Diastole cm/sec ----- Right CCA: 10.7 ----- Right ICA: 27.1 ----- Right ECA: 7.4 LEFT: Peak Systolic Velocity (PSV) cm/sec ----- Left CCA: 59.7 ----- Left ICA: 75.3 ----- Left ECA: 45.3 ICA/CCA ratio: 1.32 LEFT: End Diastole cm/sec ----- Left CCA: 10.1 ----- Left ICA: 20.7 ----- Left ECA: 3.5 VERTEBRALS (direction of flow): Right Vertebral: Antegrade Left Vertebral: Antegrade Rhythm: Normal Mild to moderate atherosclerotic changes with no significant velocity increases. Grayscale images redemonstrate mild to moderate atherosclerotic changes bilaterally greater on the le ft on ultrasound. Velocity measurements and ratios remain within normal limits bilaterally. IMPRESSION: Mild to moderate atherosclerotic changes bilaterally. No hemodynamically significant dennis nosis in either internal carotid artery. Findings correlate with CTA neck study one day earlier. Criteria for Assigning % of Stenosis / Diameter reduction (Estimation based on the indirect measurements of the internal carotid artery velocities (ICA PSV). 1. Normal (no stenosis)=ICA PSV < 125 cm/s: ratio < 2.0: ICA EDV<40 cm/s. 2. Less than 50% stenosis=ICA PSV < 125 cm/s: ratio < 2.0: ICA EDV<40 cm/s. 3. 50 to 69% stenosis=ICA PSV of 125 to 230 cm/s: ration 2.0 ? 4.0: ICA EDV 40-100 cm/s. 4. Greater than 70% stenosis to near occlusion= ICA PSV > 230 cm/s: ratio > 4.0: ICA EDV > 100 cm/s. 5. Near occlusion= ICA PSV velocities may be low or undetectable: variable ratio and ICA EDV. 6. Total occlusion=unable to detect flow.
[2020-07-20 08:48] LABS: ALT 14 U/L (4-49); AST 28 U/L (17-59); African American GFR (CKD) 77 (>60 ml/min/1.73 sqM); Albumin 3.8 g/dL (3.5-5.0); Alkaline Phosphatase 71 U/L (38-126); Anion Gap 6 mmol/L; Blood Urea Nitrogen 21 mg/dL (9-20); Calcium 8.7 mg/dL (8.4-10.2); Carbon Dioxide 28 mmol/L (22-30); Chloride 107 mmol/L (98-107); Cholesterol 160 mg/dL (<200); Glucose 111 mg/dL (74-99); HDL Cholesterol 43 mg/dL (40-60); LDL Cholesterol,Calculated 104 mg/dL (0-99); Non-African American GFR(CKD) 66 (>60 ml/min/1.73 sqM); Potassium 4.4 mmol/L (3.5-5.1); Sodium 141 mmol/L (137-145); Total Bilirubin 0.7 mg/dL (0.2-1.3); Total Protein 7.2 g/dL (6.3-8.2); Triglycerides 67 mg/dL (<150)
[2020-07-20] MEDS ORDERED: MULTIVITAMINS, THERA 1 EACH TAB PO SCH (09:00)
[2020-07-20] MEDS ORDERED: CHOLECALCIFEROL 25 MCG (1000 IU) TABLET PO SCH (09:00)
[2020-07-20] MEDS ORDERED: CLOPIDOGREL 75 MG TAB PO SCH (09:00)
--- NOTE | 2020-07-20 10:15 | MR ---
EXAMINATION TYPE: MR brain wo con DATE OF EXAM: 07/20/2020 COMPARISON: NONE HISTORY: Transient aphasia, right hand weakness and numbness TECHNIQUE: T1-weighted sagittal, T2, FLAIR, and diffusion axial, and T2 coronal coronal views of the brain are submitted. FINDINGS: There is no evidence of acute ischemia. Artifact is seen along the frontal lobes bilaterally. General ized degenerative change of the slightly greater central component. A diffuse confluent and numerous focal areas of abnormal signal scattered throughout the white matter bilaterally. Craniocervical junction maintained. Sella turcica has a normal appearance. Changes of chronic sinusit is noted orbits are symmetric. IMPRESSION: 1. No acute intracranial process. 2. Degenerative and nonspecific white matter changes most typical remote ischemia. Greater central co mponent with confluent areas of abnormal signal surrounding the white matter can be associated with t ransependymal edema. Therefore, normal pressure hydrocephalus in the differential diagnosis.
--- NOTE | 2020-07-20 12:11 | ECHOF ---
Referral Reason:Stroke. needs with bubble study MEASUREMENTS -------- HEIGHT: 172.7 cm WEIGHT: 70.8 kg BP: 125/79 FINDINGS -------- Sinus rhythm. Overall left ventricular systolic function is normal with, an EF between 55 - 60 %. Contrast study was performed with 2 iv injections of 8 ccs of agitated normal saline, at rest, and wi th cough. Negative saline bubble study. No PFO NOTED CONCLUSIONS -------- 1. Overall left ventricular systolic function is normal with, an EF between 55 - 60 %. 2. Contrast study was performed with 2 iv injections of 8 ccs of agitated normal saline, at rest, and with cough. 3. Negative saline bubble study. No PFO NOTED TIMING MACHINE OPERATOR: Liudmila Sifuentes RDCS
--- NOTE | 2020-07-20 12:30 | P.PN ---
Subjective Progress Note Date: 07/20/20 Patient was seen at bedside and he stated that he is doing well. He denies any further episode of numbness or difficulty getting his words out. He feels he is back to baseline. He is accompanied by his who agrees that she feels the patient is doing well. Patient's and patient stated that he does not have any urinary incontinence, frequency, gait difficulty or memory loss. Objective - Vital Signs Vital signs: Vital Signs Temp 98.3 F 07/19/20 20:00 Pulse 71 07/20/20 08:00 Resp 16 07/20/20 08:00 BP 138/83 07/20/20 08:00 Pulse Ox 95 07/20/20 08:00 Intake & Output 07/19/20 07/20/20 07/20/20 18:59 06:59 18:59 Intake Total 1250 Balance 1250 Weight 70.307 kg 71.2 kg Intake: Intake, IV Titration 1250 Amount Sodium Chloride 0.9% 1, 1250 000 ml @ 100 mls/hr IV . Q10H [facility] Rx#:[id number] Other: # Voids 1 1 - Exam GENERAL: The patient is lying in bed and is not in acute distress. MUSCULOSKELETAL: Has significant swan neck deformity of bilateral hand (significant arthritis). NEUROLOGICAL: Higher mental function: The patient is awake, alert, oriented to self, place and time. Patient is following commands. No aphasia and no neglect. Cranial nerves: The pupils are round, equal and reactive to light and accommodation. Visual dutta are full to confrontation throughout. Extraocular movement is intact no nystagmus is noted. Facial sensation is normal to touch throughout. The facial strength is normal throughout. Hearing is normal bilaterally to hand rub. Tongue is midline and moved [id number] without any difficulty. No dysarthria is noted. Shoulder shrug is normal bilaterally. Motor: Gait is normal with normal arm swings. The strength is 5 over 5 throughout. Normal tone and bulk. Cerebellum: Normal finger to nose heel to chin bilaterally. Sensation: Sensation is normal to touch throughout. Reflexes (right/left): 2+ throughout except ankles are 1+ bilaterally. Plantars are downgoing bilaterally. - Labs CBC & Chem 7: 07/20/20 08:15 07/20/20 08:15 Labs: Abnormal Lab Results - Last 24 Hours (Table) 07/19/20 07/19/20 07/20/20 Range/Units 13:28 13:28 08:15 MCV 103.1 H (80.0-100.0) fL MCH 36.0 H (25.0-35.0) pg Monocytes # (Manual) 1.33 H (0-1.0) k/uL BUN 22 H 21 H (9-20) mg/dL Glucose 70 L 111 H (74-99) mg/dL LDL Cholesterol, Calc 104 H (0-99) mg/dL 07/20/20 Range/Units 08:15 MCV 106.0 H (80.0-100.0) fL MCH (25.0-35.0) pg Monocytes # (Manual) (0-1.0) k/uL BUN (9-20) mg/dL Glucose (74-99) mg/dL LDL Cholesterol, Calc (0-99) mg/dL Assessment and Plan Assessment: This is a 89-year-old gentleman who presented to the emergency department on the 07/19/2020 for sudden onset of word finding difficulties, slurred speech, right facial droop and right hand numbness, tingling and weakness as well dizziness. Episode lasted for 45 minutes. Transient ischemic attack (with symptoms of slurring speech and word finding difficulty, right facial droop, right hand weakness and numbness/tingling). 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 Per interventional neurology No intervention. Mild Hard of hearing Significant for rheumatoid arthritis Plan: * CT of the head which is reported as no acute intracranial hemorrhage or midline shift. There is moderate diffuse cerebral atrophy and chronic small vessel ischemic changes redemonstrated. No significant change from prior CT. * CT angiography of the head and neck reported as no significant diameter reduction to account for the patient's symptoms. 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 Correlate clinically. * No tpa since symptoms resolved. * Stroke/Interventional Attending (Dr. Escamilla) was contacted and recommend for loading dose of Brilinta 180mg once and recommend for patient to follow-up with him upon discharge. Per ED note Dr. Escamilla was provided with patient's home number. * MRI of the brain: It is reported as no acute intracranial process. Degenerative and nonspecific white matter changes most typical remote ischemia. Greater central compared with confluent area of abnormal signal surrounding the white matter can be associate with transependymal. Therefore normal pressure hydrocephalus is in the differential diagnosis. From history and physical exam it does not seem patient has normal pressure hydrocephalus. * 2-D echo: Was reported as overall left ventricle still function is low normal with ejection fraction of 50-55%. Left atrium is moderately dilated. * lipid panels: Triglyceride of 67, cholesterol of 160, LDLs of 104 and HDL 43. The goal of LDL is less than 70. * carotid duplex: Mild to moderate atherosclerotic changes bilaterally. No hemodynamic significant stenosis in either internal carotid artery. Finding correlate with CTA neck study * Continue ASA 81mg and Plavix 75mg daily. The patient to be on dual antiplatelets for 21 days and after that stop Plavix and to continue aspirin indefinitely. Continue Lipitor 80 mg daily. * Continue continous Cardiac monitoring. * Continue Q4 hours neuro checks. * PT, OT and BUOY TENDER are consulted. * I notified him that I would like him to observe him one more day especially with right mca clot but felt better and would like to go home. * Please avoid any hypoglycemic episodes and will defer management to the primary team. There is no further work-up needed. Patient needs to follow-up with a neurologist (consider Dr. Duran) unless he knows someone else and to follow-up within 1-2 weeks. He needs to follow-up with Dr. Escamilla as outpatient. The plan is discussed with the patient, his (Marlene who is at bedside) and patient's nurse. Watson Townsend MD Neuro-Hospitalist Time with Patient: Less than 30
[2020-07-20 12:33] VITALS: BP 155/78; PULSE 65
--- NOTE | 2020-07-20 13:11 | P.DS ---
Providers Date of admission: 07/19/20 15:55 Expected date of discharge: 07/20/20 Attending physician: Delia Mcneil Consults: 07/19/20 14:11 Consult Physician Urgent Consulting Provider: Watson Townsend Consult Reason/Comments: tia Do you want consulting provider notified?: Yes Primary care physician: Delia Mcneil [facility] Course: Discharge diagnosis 1. Episodes of expressive aphasia with weakness and numbness involving the right side of the face and the right upper extremity, symptoms now resolved, possible transient ischemic attack, patient is admitted to telemetry floor neurology consultation was requested, MRI of the brain was ordered and patient was started on oral Plavix and oral Lipitor 2. Previous history of syncope 3. History of benign prostatic hypertrophy 4. History of osteoarthritis 2-D echo completed showing an EF of 55-60% Carotid Doppler completed showing mild to moderate atherosclerotic changes bilaterally no hemodynamically significant stenosis in either internal carotid artery MRI of the brain completed showing no acute intracranial process. Degenerative and nonspecific T-wave changes most remote ischemia. Greater central component with confluent areas of abnormal signal surrounding white matter can be associated with transependymal edema. Therefore normal pressure hydrocephalus is in the differential diagnosis Hospital course Lorne Velásquez, is an 89-year-old male who presented to [facility] emergency room with a chief complaint of expressive aphasia and weaknes s and tingling in the right side of his face and his right hand, patient and his were worried about the possibility of stroke, his called EMS and he was brought into emergency room. Patient was evaluated in emergency room vital examination on presentation revealed a temperature of 97.9 pulse 72 respiration 18 blood pressure 186/91 pulse ox 97% on room air. 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 While in the emergency room patient was experiencing difficulty finding words, and numbness and tingling in the right side of his face and his right hand, symptoms improved significantly, then patient had another episode of worsening expressive aphasia and tingling in his right hand lasting 10-15 minutes then symptoms resolved completely. At the time of my exam patient is stating that he does not have any symptoms. On 07/20/2020 patient is alert and oriented 3. MRI of the brain was completed and results above. Per neurology services from history and physical exam it does not patient has normal pressure hydrocephalus. Patient should follow-up with a neurologist for further management. Per neurology continue aspirin 81 mg Plavix 75 daily. Patient to be on dual antiplatelet for 21 days after that. Continue aspirin. Patient also be maintained on Lipitor 80 mg daily. Patient denies any acute symptoms. Patient denies chest pain or shortness breath. Patient denies nausea vomiting or diarrhea. Patient denies any urinary burning or frequency Patient Condition at Discharge: Stable Plan - Discharge Summary Discharge Rx Participant: No New Discharge Prescriptions: New Atorvastatin [Lipitor] 80 mg PO HS 30 Days #30 tab Clopidogrel [Plavix] 75 mg PO DAILY 30 Days #30 tab Aspirin 81 mg PO DAILY 30 Days #30 chew Continue Omeprazole [PriLOSEC] 20 mg PO AC-BID Multivitamins, Thera [Multivitamin (formulary)] 1 tab PO DAILY Cholecalciferol [Vitamin D3 (25 Mcg = 1000 Iu)] 50 mcg PO DAILY HYDROcodone/APAP 5-325MG [[place] 5-325] 0.5 tab PO DAILY PRN PRN Reason: Pain Discontinued Celecoxib [CeleBREX] 200 mg PO BID PRN PRN Reason: Pain Discharge Medication List Omeprazole [PriLOSEC] 20 mg PO AC-BID 10/07/14 [History] Multivitamins, Thera [Multivitamin (formulary)] 1 tab PO DAILY 12/06/14 [History] Cholecalciferol [Vitamin D3 (25 Mcg = 1000 Iu)] 50 mcg PO DAILY 05/15/19 [History] HYDROcodone/APAP 5-325MG [[place] 5-325] 0.5 tab PO DAILY PRN 05/21/19 [History] Aspirin 81 mg PO DAILY 30 Days #30 chew 07/20/20 [Rx] Atorvastatin [Lipitor] 80 mg PO HS 30 Days #30 tab 07/20/20 [Rx] Clopidogrel [Plavix] 75 mg PO DAILY 30 Days #30 tab 07/20/20 [Rx] Follow up Appointment(s)/Referral(s): Delia Mcneil MD [Primary Care Provider] - 1-2 days Aakash Duran DO [STAFF PHYSICIAN] - 1 Week Patient Instructions/Handouts: Transient Ischemic Attack (DC) Discharge Disposition: HOME SELF-CARE
[2020-07-20] MEDS ORDERED: ATORVASTATIN 80 MG TAB PO SCH (21:00)
[2020-07-21 02:04] LABS: Folate, Serum >24.0 ng/mL
[2020-07-21] MEDS ORDERED: ASPIRIN 325 MG TAB PO SCH (09:00)
[2020-07-21] MEDS ORDERED: ASPIRIN 81 MG PO SCH (09:00)
== END 2020-07-20 14:56 | disposition home or self-care (01) ==
LOC: EC 13:13 → 6NMEDSUR 15:55 → 3SCARD 17:59 → INTOOBSV 07-20 13:10 → OBSVTOIN 07-20 13:10
PROVIDERS: ADMIT Internal Medicine; ATTEND Internal Medicine
DX: R47.01 Aphasia (principal); R29.810 Facial weakness; R20.2 Paresthesia of skin; R42 Dizziness and giddiness; R20.0 Anesthesia of skin; R53.1 Weakness; H91.90 Unspecified hearing loss, unspecified ear; K21.9 Gastro-esophageal reflux disease without esophagitis; G89.29 Other chronic pain; M54.9 Dorsalgia, unspecified; N40.1 Benign prostatic hyperplasia with lower urinary tract symptoms; R33.8 Other retention of urine; M13.0 Polyarthritis, unspecified; I67.82 Cerebral ischemia; M06.9 Rheumatoid arthritis, unspecified; I65.23 Occlusion and stenosis of bilateral carotid arteries; Z79.1 Long term (current) use of non-steroidal anti-inflammatories (NSAID); Z79.82 Long term (current) use of aspirin; Z79.891 Long term (current) use of opiate analgesic; Z79.899 Other long term (current) drug therapy; Z87.01 Personal history of pneumonia (recurrent); Z97.4 Presence of external hearing-aid; Z86.79 Personal history of other diseases of the circulatory system; Z96.651 Presence of right artificial knee joint; Z98.42 Cataract extraction status, left eye; Z98.41 Cataract extraction status, right eye; Z96.1 Presence of intraocular lens; Z98.890 Other specified postprocedural states; Z82.49 Family history of ischemic heart disease and other diseases of the circulatory system; Z82.3 Family history of stroke
CPT/HCPCS: 99285; 36415; 93005; 93308; 93306; 97161; 97165; 92523; 82747; 80061; 80053 ×2; 82607; 82746; 84484; 85025 ×2; 85610; 85730; 71046; 93880; 70496; 70450; 70498; 70551; G0378 ×3; Q9967

== ENCOUNTER → 2020-09-27 | Outpatient (CLI) | payer MEDICARE ==
--- NOTE | 2020-11-07 15:50 | EM ---
30 Day Event monitor note: Patient wore an event monitor for 30 days from 09/27/2020 until 10/20/2020. There was a total of on and 35 hours worth of data with patient being compliant with wearing monitor only 23% of the time. Findings: Patient's baseline heart rate was normal sinus rhythm. There were no signficant atrial fibrillation, atrial flutter, or ventricular tachycardia episodes. There were no significant pauses greater than 2 seconds. There were rare PACs. Patient did have 15 symptom activated events which all corresponded with normal sinus rhythm. Conclusions: 30 day event monitor showing only normal sinus rhythm and. Rare PACs. Symptom activated events corresponded with normal sinus rhythm. [facility]
== END | disposition home or self-care (01) ==
LOC: RADECHMAIN 11:52
PROVIDERS: ATTEND Psychiatry & Neurology Neurology
DX: I67.9 Cerebrovascular disease, unspecified (principal)
CPT/HCPCS: 93270

== ENCOUNTER → 2021-05-17 | Outpatient (CLI) | payer MEDICARE | END | disposition home or self-care (01) | LOC: LABWHC1 14:16 | PROVIDERS: ATTEND Psychiatry & Neurology Neurology | DX: Z01.818 Encounter for other preprocedural examination (principal) | CPT/HCPCS: 36415; 93005 ==

== ENCOUNTER → 2021-05-29 | Outpatient (CLI) | payer MEDICARE ==
[2021-05-30 12:53] LABS: Coronavirus SARS CoV-2 Not Detected (Not Detected)
== END | disposition home or self-care (01) ==
LOC: LABWHC1 10:11
PROVIDERS: ATTEND Psychiatry & Neurology Neurology
DX: Z01.812 Encounter for preprocedural laboratory examination (principal); Z20.822 Contact with and (suspected) exposure to COVID-19
CPT/HCPCS: U0003; C9803